=== PATIENT | female | born 1935 | race Caucasian/White ===

== ENCOUNTER 2020-04-21 12:48 | Outpatient (REF) | payer MEDICARE, MEDICAID, SELFPAY | END 2020-04-21 12:49 | disposition home or self-care (01) | LOC: HO.LAB 12:48 | PROVIDERS: Visit Provider Internal Medicine | DX: Z20.828 Contact with and (suspected) exposure to other viral communicable diseases (principal) | CPT/HCPCS: 36415; C9803; U0003 ==

== ENCOUNTER 2020-05-08 09:15 | Outpatient (REF) | payer MEDICARE, MEDICAID, SELFPAY ==
[2020-05-08 11:03] LABS: Alanine Aminotransferase 16 U/L (0-31); Alkaline Phosphatase 115 U/L (39-117); Anion Gap 13 (12-20); Aspartate Amino Transferase 28 U/L (5-31); Bilirubin Total 0.8 mg/dL (0.0-1.0); Blood Urea Nitrogen 25 mg/dL (9-16); Calcium 9.6 mg/dL (8.4-10.2); Carbon Dioxide 25 mmol/L (22-29); Chloride 104 mmol/L (96-108); Cholesterol 151 mg/dL; Estimated Glomerular Filt Rate 43; Glucose Fasting 84 mg/dL (60-99); HDL Cholesterol 68 mg/dL; LDL Cholesterol Calculated 63 mg/dl; Potassium 4.2 mmol/l (3.3-5.1); Sodium 138 mmol/L (135-145); Total Protein 6.6 g/dL (6.5-8.0); Triglycerides 101 mg/dL
== END 2020-05-08 09:16 | disposition home or self-care (01) ==
LOC: HO.LAB 09:15
PROVIDERS: PCP Internal Medicine; Visit Provider Internal Medicine
DX: N18.30 Chronic kidney disease, stage 3 unspecified (principal); E78.00 Pure hypercholesterolemia, unspecified
CPT/HCPCS: 36415; 80053; 80061

== ENCOUNTER 2020-12-01 08:46 | Outpatient (REF) | payer MEDICARE, MEDICAID, SELFPAY ==
--- NOTE | ~2020-12-01 | MM_ITS ---
EXAMINATION: MM SCREENING DIGITAL BREAST TOMOSYNTHESIS, BILATERAL CLINICAL INFORMATION: Screening. Asymptomatic. The lifetime risk of breast cancer based on the Tyrer-Cuzick Model is under 2%. COMPARISON: Mammography: 11/26/2019, outside mammography 05/31/2018, 04/05/2018 ([facility]). TECHNIQUE: Digital breast tomosynthesis is performed in both the craniocaudal and mediolateral oblique views along with computer-aided detection (CAD). Synthesized 2D images are generated from the tomosynthesis. FINDINGS: There are scattered areas of fibroglandular density (ACR BI-RADS breast composition Category b). There are no significant masses, abnormal calcifications, or other abnormalities. There is biopsy clip marker mid upper outer left breast. The axilla and skin contours are unremarkable. Parenchymal pattern is similar to prior studies. No significant changes. MM/MM tomosynthesis screening BI IMPRESSION: No mammographic evidence of malignancy. ASSESSMENT: BI-RADS 1: Negative RECOMMENDATION: Routine annual mammography screening. This patient's information was entered into a reminder system with a target due date for their next mammogram.
[2020-12-01 11:11] LABS: Alanine Aminotransferase 17 U/L (0-31); Albumin Level 4.1 g/dL (3.5-5.0); Alkaline Phosphatase 81 U/L (39-117); Anion Gap 15 (12-20); Aspartate Amino Transferase 26 U/L (5-31); Blood Urea Nitrogen 34 mg/dL (9-16); Calcium 10.1 mg/dL (8.4-10.2); Carbon Dioxide 23 mmol/L (22-29); Chloride 107 mmol/L (96-108); Cholesterol 152 mg/dL; Estimated Glomerular Filt Rate 38; Glucose Fasting 94 mg/dL (60-99); HDL Cholesterol 63 mg/dL; LDL Cholesterol Calculated 73 mg/dl; Potassium 4.4 mmol/L (3.3-5.1); Sodium 141 mmol/L (135-145); Total Protein 6.7 g/dL (6.5-8.0); Triglycerides 81 mg/dL
== END 2020-12-01 08:47 | disposition home or self-care (01) ==
LOC: HO.MAMMO 08:46
PROVIDERS: PCP Internal Medicine; Visit Provider Internal Medicine
DX: Z12.31 Encounter for screening mammogram for malignant neoplasm of breast (principal); E78.5 Hyperlipidemia, unspecified
CPT/HCPCS: 36415; 77063; 77067; 80053; 80061

== ENCOUNTER 2021-10-25 08:36 | Outpatient (REF) | payer OTHER, MEDICAID, SELFPAY ==
[2021-10-25 09:46] LABS: Alanine Aminotransferase 16 U/L (0-31); Alkaline Phosphatase 103 U/L (39-117); Anion Gap 14 (12-20); Aspartate Amino Transferase 24 U/L (5-31); Bilirubin Total 0.8 mg/dL (0.0-1.0); Blood Urea Nitrogen 39 mg/dL (9-16); Calcium 9.6 mg/dL (8.4-10.2); Carbon Dioxide 22 mmol/L (22-29); Chloride 103 mmol/L (96-108); Cholesterol 148 mg/dL; Estimated Glomerular Filt Rate 39; Glucose Fasting 97 mg/dL (60-99); HDL Cholesterol 64 mg/dL; LDL Cholesterol Calculated 72 mg/dl; Potassium 3.9 mmol/L (3.3-5.1); Sodium 135 mmol/L (135-145); Total Protein 6.7 g/dL (6.5-8.0); Triglycerides 62 mg/dL
== END 2021-10-25 08:37 | disposition home or self-care (01) ==
LOC: HO.LAB 08:36
PROVIDERS: PCP Internal Medicine; Visit Provider Internal Medicine
DX: I10 Essential (primary) hypertension (principal); E78.5 Hyperlipidemia, unspecified
CPT/HCPCS: 36415; 80053; 80061

== ENCOUNTER 2021-12-02 09:43 | Outpatient (REF) | payer OTHER, MEDICAID, SELFPAY ==
--- NOTE | ~2021-12-02 | MM_ITS ---
EXAMINATION: MM SCREENING DIGITAL BREAST TOMOSYNTHESIS, BILATERAL CLINICAL INFORMATION: Screening. Asymptomatic. The lifetime risk of breast cancer based on the Tyrer-Cuzick Model is under 2%. COMPARISON: Mammography: 12/01/2020, 11/26/2019, 05/31/2018 TECHNIQUE: Digital breast tomosynthesis is performed in both the craniocaudal and mediolateral oblique views along with computer-aided detection (CAD). Synthesized 2D images are generated from the tomosynthesis. Additional exaggerated right CC view is provided. FINDINGS: There are scattered areas of fibroglandular density (ACR BI-RADS breast composition Category b). There are no significant masses, abnormal calcifications, or other abnormalities. Biopsy clip marker again present left breast upper outer quadrant mid depth. Parenchymal pattern is similar to prior studies. No developing density. No architectural abnormality. MM/MM tomosynthesis screening BI IMPRESSION: No mammographic evidence of malignancy. ASSESSMENT: BI-RADS 1: Negative RECOMMENDATION: Routine annual mammography screening. This patient's information was entered into a reminder system with a target due date for their next mammogram.
--- NOTE | ~2021-12-02 | MM_ITS ---
EXAMINATION: BONE DENSITOMETRY CLINICAL INDICATION: Menopause. COMPARISON: None (current study represents initial baseline exam). TECHNIQUE: Using a [employer] DXA System (software version: 13.1) manufactured by [employer], dual-energy x-ray absorptiometry was performed of the lumbar spine and left hip. The images are of good technical quality. Summary results are attached. FINDINGS: AP SPINE L1-L2 (excluding L3 and L4): The data of L1-L4 has been changed to exclude the L3 and L4 vertebral bodies, because degenerative changes at these levels may cause overestimation of lumbar spine density. BMD 1.224 g/cm2, Z-score 3.0, T-score 0.5, normal. LEFT FEMUR, NECK: BMD 0.785 g/cm2, Z-score 0.9, T-score -1.8, osteopenia. LEFT FEMUR, TOTAL: BMD 0.846 g/cm2, Z-score 1.3, T-score -1.3, osteopenia. IDENTIFIED RISK FACTORS: Menopause, height loss. HISTORY OF FRACTURE: None listed. MEDICATIONS: Vitamin D. MM/XR DEXA axial skeleton IMPRESSION: 1. DIAGNOSIS: Osteopenia based on the lowest T-score value of -1.8 in the femoral neck applying World Health Organization criteria. 2. 10-YEAR FRACTURE RISK PREDICTION, FRAX: Major osteoporotic fracture (clinical spine, forearm, hip or shoulder) 12.6%. Hip fracture 4.0%. 3. Treatment Recommendations: NOF guidelines recommend consideration for treatment in postmenopausal women and men age 50 and older presenting with the following: -A hip or vertebral (clinical or morphometric) fracture. -T-score less than or equal to -2.5 at the femoral neck or spine after appropriate evaluation to exclude secondary causes. -Low bone mass at the hip or spine and a 10-year fracture probability by FRAX of greater than or equal to 3% for hip fracture or greater than or equal to 20% for major osteoporotic fracture based on the [place] adapted WHO algorithm. 4. Other Recommendations: All treatment decisions require clinical judgment and consideration of individual patient factors, including patient preferences, comorbidities, previous drug use, risk factors not captured in the FRAX model (e.g. frailty, falls, vitamin D deficiency, increased bone turnover, interval significant decline in bone density) and possible under or overestimation of fracture risk by FRAX. Additional medical evaluation for secondary cause of low bone mineral density may be appropriate. FUTURE SCAN RECOMMENDATION: People with diagnosed cases of osteoporosis or at high risk for fracture should have regular bone mineral density tests. For patients eligible for Medicare, routine testing is allowed once every 2 years. The testing frequency can be increased to one year for patients who have rapidly progressing disease, those who are receiving or discontinuing medical therapy to restore bone mass, or have additional risk factors.
== END 2021-12-02 09:44 | disposition home or self-care (01) ==
LOC: HO.MAMMO 09:43
PROVIDERS: PCP Internal Medicine; Visit Provider Internal Medicine
DX: Z12.31 Encounter for screening mammogram for malignant neoplasm of breast (principal); Z13.820 Encounter for screening for osteoporosis; Z78.0 Asymptomatic menopausal state
CPT/HCPCS: 77063; 77067; 77080

== ENCOUNTER 2021-12-08 09:54 | Inpatient (IN) | payer OTHER, SELFPAY ==
--- NOTE | ~2021-12-08 | MR_ITS ---
EXAMINATION: MR BRAIN WITHOUT CONTRAST CLINICAL INFORMATION: Cerebellar cerebrovascular accident. Lightheadedness. Dizziness. COMPARISON: CTA head and neck from 12/08/2021. TECHNIQUE: MRI of the brain was obtained using routine sequences without contrast. FINDINGS: No focal restricted diffusion is demonstrated to suggest acute or subacute cerebral ischemia. No evidence of acute or chronic hemorrhagic products on heme-sensitive imaging. Scattered periventricular, deep white matter, and brainstem T2 FLAIR hyperintensities consistent with moderate underlying microangiopathy. Proportional prominence of the ventricles and sulcal spaces without evidence of obstructive hydrocephalus. No abnormal mass effect. No midline shift. Normal appearance of the pituitary gland. Normal positioning of the cerebellar tonsils. Normal arterial and venous vascular flow voids are present. Normal, homogeneous marrow signal. Mild mucosal thickening of the paranasal sinuses. No signal abnormalities within the mastoids. Left-sided lens extraction. MR/MR head/brain wo con IMPRESSION: 1. No acute intracranial abnormalities. 2. Moderate underlying microangiopathy and generalized cerebral volume loss.
--- NOTE | ~2021-12-08 | XR_ITS ---
EXAMINATION: XR CHEST CLINICAL INFORMATION: Lightheadedness. COMPARISON: None TECHNIQUE: Frontal view of the chest was obtained. FINDINGS: Lungs are well expanded and clear. Pulmonary vessels are normal in caliber. No evidence of pulmonary edema or pleural effusion. Cardiac silhouette has normal size and contour. Atherosclerotic calcification of the aorta. Mild dextrocurvature of the degenerated thoracic spine. XR/XR chest 1V IMPRESSION: No acute pulmonary disease.
--- NOTE | ~2021-12-08 | CT_ITS ---
CT ANGIOGRAM NECK WITH CONTRAST CT ANGIOGRAM BRAIN WITH CONTRAST CLINICAL INFORMATION: Balance. Lightheadedness and dizziness. Nausea and vomiting. COMPARISON: None available. TECHNIQUE: Test bolus sequences followed by intravenous administration 79 mL of Omnipaque 350. Helical imaging was performed in the axial plane from the thoracic inlet to the skull vertex. Delayed postcontrast imaging of the head was also performed. The data was processed at the mining engineering technologist workstation for generation of MIP sequences. Angled MIPs and volume rendered reformatted images were also generated at an offline 3D workstation under concurrent supervision. Stenoses are assessed in accordance with NASCET criteria unless otherwise indicated. This CT examination was performed using dose optimization techniques as appropriate, variously including the following: *Automated exposure control *Adjustment of mA and/or kV according to patient size (this includes techniques or standardized protocols for targeted exams where dose is matched to indication/reason for exam; i.e. extremities or head) *Use of iterative reconstruction technique FINDINGS: BRAIN: There is moderate chronic microangiopathy. [There is no intracranial hemorrhage, hydrocephalus, extra-axial surface collection, midline shift, or other herniation pattern. Hathaway to white matter differentiation is diffusely maintained without evidence of an evolved acute territorial infarct. The basilar cisterns are preserved. No significant soft tissue abnormality. No acute osseous abnormality. The paranasal sinuses and the mastoid air cells are well aerated.] CERVICAL SOFT TISSUES AND LUNG APICES: Imaged upper lungs are clear. There is multilevel cervical spondylosis. NECK CTA: Atherosclerotic calcification throughout the aortic arch and of the great vessel origins resulting in mild narrowing of the subclavian artery and left common carotid artery origins. Atherosclerotic calcification results in a severe stenosis of the right vertebral artery origin and the left vertebral artery is dominant. Cervical vertebral arteries remain widely patent. Extensive atherosclerotic calcification results in an 80% stenosis of the proximal right internal carotid artery and a less than 50% stenosis of the proximal left internal carotid artery. Internal carotid arteries are otherwise widely patent. BRAIN CTA: Atherosclerotic calcification throughout the carotid siphons bilaterally without significant stenosis. No focal flow-limiting stenosis nor discrete proximal large artery occlusion. No aneurysm. Timing of the contrast bolus allows assessment of the major dural venous sinuses, which all opacify normally] CT/CT angio head neck IMPRESSION: - No acute intracranial findings. There is moderate chronic microangiopathy. - Extensive atherosclerotic calcification results in an 80% stenosis of the proximal right internal carotid artery and a less than 50% stenosis of the proximal left internal carotid artery. 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
--- NOTE | 2021-12-08 10:17 | ECG_ITS ---
Test Reason : TACHYCARDIA Blood Pressure : / mmHG Vent. Rate : 060 BPM Atrial Rate : 060 BPM P-R Int : 172 ms QRS Dur : 086 ms QT Int : 448 ms P-R-T Axes : 000 -20 124 degrees QTc Int : 448 ms Normal sinus rhythm Low voltage QRS Cannot rule out Anterior infarct , age undetermined ST & T wave abnormality, consider lateral ischemia Abnormal ECG When compared with ECG of 15-AUG-2002 08:08, Minimal criteria for Inferior infarct are no longer Present T wave inversion now evident in Anterolateral leads Referred By: Felicita Holder Electronically Signed By:SHELBY MONTANO
--- NOTE | 2021-12-08 10:24 | ED_ITS ---
HPI - General Adult General Chief complaint: Nausea/Vomiting/Diarrhea Stated complaint: N/V/DIZZINESS X'S 4 HOURS Time Seen by Provider: 12/08/21 10:16 Source: patient Mode of arrival: ambulatory History of Present Illness HPI narrative: 85-year-old female with a past medical history of HLD, HTN, presenting to the ED complaining of lightheadedness and feeling off balance since waking this morning. Reports shakiness, and as soon as she sat up in bed had nausea and 1 episode of emesis. Symptoms worse with position changes and ambulation, denies room spinning dizziness. Denies taking anticoagulation. Denies headache, vision change/loss, CP/SOB, abdominal pain, pedal edema. Admits recently started taking calcium although denies other new medications Onset (ago): hour(s) Related Data Previous Rx's Medication Instructions Recorded lisinopril 20 mg tablet 20 mg PO DAILY 90 days #90 tabs 12/12/20 atorvastatin 20 mg tablet 20 mg PO DAILY 90 days #90 tabs 01/03/21 hydrochlorothiazide 25 mg tablet 25 mg PO QAM 90 days #90 tabs 01/03/21 diltiazem HCl 360 mg 360 mg PO DAILY 90 days #90 caps 11/12/21 capsule,extended release 24 hr calcium carbonate 600 mg-vitamin 1 cap PO BID 90 days #180 caps 12/04/21 D3 10 mcg (400 unit) capsule Allergies Allergy/AdvReac Type Severity Reaction Status Date / Time No Known Allergies Allergy Verified 11/02/21 13:22 Review of Systems Review of Systems: Constitutional: No Fever, No Chills, No Fatigue, No Malaise ENT/Mouth: No Ear Pain, No Nasal Congestion, No Sinus Pain, No Hoarseness, No sore throat, No Rhinorrhea, No Swallowing Difficulty Eyes: No Eye Pain, No Swelling, No Redness,No Vision Changes Cardiovascular: No Chest Pain, No SOB, No Dyspnea on Exertion, No Edema, No Palpitations Respiratory: No Cough, No Sputum, No Dyspnea Gastrointestinal: + Nausea, + Vomiting, No Diarrhea, No Constipation, No Abdominal pain Genitourinary: No Dysuria, No Urinary Frequency, No Hematuria, No Urinary Incontinence/retention Musculoskeletal: No joint pain, No Myalgias, No Joint Swelling Skin: No Skin Lesions, No rash Neuro: + Weakness, No Numbness, No Paresthesias, No Loss of Consciousness, + lightheaded, No Headache Yes all other systems are reviewed and are negative Constitutional: Constitutional: Reports as per HPI Neurologic: Denies Abnormal speech present [facility] Past Medical History Attestation statement: The following information was validated with the patient. Medical History Dyslipidemia Essential hypertension Surgical History History of arthroscopy of left knee Family History Family History Father No problems noted. Mother No problems noted. Social History Social History Housing: Apartment Alcohol intake: never Patient Tobacco Use Status: Never used Tobacco e-Cigarette/Vaping Use: Never Used Second Hand Smoke Exposure: No Advance Directives: Yes Advance Directives Information Provided: Yes Advance Directives on File: No service: No Current occupational status: retired Cognitive needs: No Hearing needs: No Vision needs: No Physical Exam ED Vital Signs: Vital Signs - 24 hr 12/08/21 11:00 12/08/21 11:06 Temperature 97.8 F Pulse Rate 67 67 Respiratory Rate 16 Blood Pressure 139/53 L 139/53 L Pulse Oximetry 100 Oxygen Delivery Method Room Air BMI result Body Mass Index 20.7 Const General: cooperative, healthy appearing and no acute distress Orientation/consciousness: patient oriented x3 Limitations: no limitations [facility] [place] Head: Yes normal to inspection and Yes atraumatic Ears: hearing grossly normal bilaterally General nose exam: Normal external nose present Face and sinus: Yes normal facial exam Eyes General: appearance normal, both eyes and all related structures Pupils: Equal, round and reactive pupils present EOM: EOMs intact bilaterally Neck Neck: Yes normal visual inspection, Yes full ROM and Yes no meningeal signs Resp Effort & Inspection: normal respiratory effort and no respiratory distress Auscultation: clear to auscultation bilaterally, no crackles, no rales and no rhonchi Cardio Rate: regular rate Heart sounds: S1 normal heart sound present and S2 normal heart sound present GI Inspection: Yes normal to inspection Palpation (GI): Soft to palpation, nontender, no guarding and not rigid General: Yes no CVA tenderness Back/Spine/Pelvis Back: no CVA tenderness Skin Rashes: no rashes Wounds: no wounds Neuro Other: No ataxia. Gait slow and steady with some assistance General: patient oriented x3, tone normal, moves all extremities, no meningeal signs, no focal motor deficits and CN's II-XI intact bilaterally Cranial nerves: Yes CN's II-XII intact bilaterally and Yes Equal, round and reactive pupils present Cognition (Neuro): normal cognition Speech: No Abnormal speech present Motor exam (neuro): 5/5 motor strength present throughout, Pronator motor function not present and no tremor noted Romberg Test: Positive Extrem General: Yes normal to inspection Course Course Course Narrative: -1219--no leukocytosis. Platelets 99. BUN chronically elevated. Calcium mildly elevated to 10.5. Initial troponin 33 no available priors > will obtain 3 hour repeat -UA negative. COVID-19 negative -orthostatic vital signs negative XR chest 1V IMPRESSION: No acute pulmonary disease. -1611--repeat troponin elevated 539.9 > will obtain additional repeat EKG. Patient still denies CP/SOB. Will consult Cardiology Dr. Reese Consulted Dr. Reese who recommended holding heparin until MRI can be obtained to rule out ICH/cerebellar CVA. Plan to admit for further management. Medical Decision Making [facility] Narrative Medical decision making narrative: 85-year-old female with a past medical history of HLD, HTN, presenting to the ED complaining of lightheadedness and feeling off balance since waking this morning. Reports shakiness, and as soon as she sat up in bed had nausea and 1 episode of emesis. On exam vital signs stable, NAD, nontoxic appearing, + Romberg's test, ambulating with slow steady gait needing some assistance, no ataxia. Concern for CVA vs BPPV vs metabolic abnormalities vs ACS. Lower suspicion for ICH Patient is not in the window for tPA ad unknown sx start time Plan: EKG, labs, UA, CXR, CTA head and neck, IVF, orthostatics, anticipated admission Medical Records Medical records reviewed: Yes I reviewed the patient's medical records. Lab Data Lab results reviewed: Yes I reviewed the patient's lab results. Result diagrams: 12/08/21 11:27 12/08/21 11:27 Labs: Lab Results 12/08/21 12/08/21 12/08/21 Range/Units 11:20 11:27 11:27 WBC 8.0 (4.8-10.8) X10*3/uL RBC 3.93 L (4.20-5.50) X10*6/uL Hgb 12.2 (12.0-16.0) g/dl Hct 36.8 L (37.0-47.0) % MCV 93.6 (80.0-98.0) fL MCH 31.0 (27.0-33.0) pg MCHC 33.2 (31.0-35.0) g/dl RDW 13.5 (11.0-16.0) % Plt Count 99 L (160-400) X10*3/uL MPV 13.1 H (9.4-12.3) fL Immature Gran % (Auto) 0.5 H (0.0-0.4) % Neut % (Auto) 80.9 H (45-73) % Lymph % (Auto) 11.7 L (20-40) % [place] % (Auto) 5.9 (2-11) % Eos % (Auto) 0.5 (0-4) % Baso % (Auto) 0.5 (0-2) % Lymph # (Auto) 0.9 L (1.2-4.9) X10*3/uL [place] # (Auto) 0.5 (0.1-1.2) X10*3/uL Eos # (Auto) 0.0 (0.0-0.4) X10*3/uL Baso # (Auto) 0.0 (0.0-0.2) X10*3/uL Abs Immat Gran (auto) 0.04 H (0.00-0.03) X10*3/uL Absolute Neuts (auto) 6.5 (2.0-8.3) x10*3/uL Absolute Nucleated RBC 0.000 (0.0-0.012) X10*3/uL Nucleated RBC % (auto) 0.0 (0.0-0.2) /100WBC PT (10.0-13.1) SEC INR (0.9-1.1) APTT (26.0-36.4) SEC Sodium 139 (135-145) mmol/L Potassium 4.9 D (3.3-5.1) mmol/L Chloride 103 (96-108) mmol/L Carbon Dioxide 25 (22-29) mmol/L Anion Gap 16 (12-20) BUN 40 H (9-16) mg/dL Creatinine 1.27 (0.5-1.4) mg/dL Estim Creat Clear Calc 24.1 Estimated GFR 40 Random Glucose 96 (60-115) mg/dL Calcium 10.5 H D (8.4-10.2) mg/dL Magnesium 1.7 (1.6-2.6) mg/dL Total Bilirubin 0.6 (0.0-1.0) mg/dL Direct Bilirubin 0.3 (0.0-0.5) mg/dL AST 24 (5-31) U/L ALT 14 (0-31) U/L Alkaline Phosphatase 85 (39-117) U/L Troponin I High Sens (<3.5-17.0) ng/L Total Protein 6.5 (6.5-8.0) g/dL Albumin 3.8 (3.5-5.0) g/dL Urine Color Urine Appearance Urine pH (5.0-8.0) Ur Specific [place] (1.005-1.025) Urine Protein (Neg-Trace) mg/dL Urine Glucose (UA) (Negative) mg/dL Urine Ketones (Negative) mg/dL Urine Blood (Negative) Urine Nitrite (Negative) Ur Leukocyte Esterase (Negative) COVID-19 (SANDRA) Negative (Negative) COVID-19 Clin Com See Note 12/08/21 12/08/21 12/08/21 Range/Units 11:27 11:27 11:45 WBC (4.8-10.8) X10*3/uL RBC (4.20-5.50) X10*6/uL Hgb (12.0-16.0) g/dl Hct (37.0-47.0) % MCV (80.0-98.0) fL MCH (27.0-33.0) pg MCHC (31.0-35.0) g/dl RDW (11.0-16.0) % Plt Count (160-400) X10*3/uL MPV (9.4-12.3) fL Immature Gran % (Auto) (0.0-0.4) % Neut % (Auto) (45-73) % Lymph % (Auto) (20-40) % [place] % (Auto) (2-11) % Eos % (Auto) (0-4) % Baso % (Auto) (0-2) % Lymph # (Auto) (1.2-4.9) X10*3/uL [place] # (Auto) (0.1-1.2) X10*3/uL Eos # (Auto) (0.0-0.4) X10*3/uL Baso # (Auto) (0.0-0.2) X10*3/uL Abs Immat Gran (auto) (0.00-0.03) X10*3/uL Absolute Neuts (auto) (2.0-8.3) x10*3/uL Absolute Nucleated RBC (0.0-0.012) X10*3/uL Nucleated RBC % (auto) (0.0-0.2) /100WBC PT 11.5 (10.0-13.1) SEC INR 1.0 (0.9-1.1) APTT 27.2 (26.0-36.4) SEC Sodium (135-145) mmol/L Potassium (3.3-5.1) mmol/L Chloride (96-108) mmol/L Carbon Dioxide (22-29) mmol/L Anion Gap (12-20) BUN (9-16) mg/dL Creatinine (0.5-1.4) mg/dL Estim Creat Clear Calc Estimated GFR Random Glucose (60-115) mg/dL Calcium (8.4-10.2) mg/dL Magnesium (1.6-2.6) mg/dL Total Bilirubin (0.0-1.0) mg/dL Direct Bilirubin (0.0-0.5) mg/dL AST (5-31) U/L ALT (0-31) U/L Alkaline Phosphatase (39-117) U/L Troponin I High Sens 33.0 H (<3.5-17.0) ng/L Total Protein (6.5-8.0) g/dL Albumin (3.5-5.0) g/dL Urine Color Yellow Urine Appearance Clear Urine pH 7.5 (5.0-8.0) Ur Specific [place] 1.010 (1.005-1.025) Urine Protein Negative (Neg-Trace) mg/dL Urine Glucose (UA) Negative (Negative) mg/dL Urine Ketones Negative (Negative) mg/dL Urine Blood Negative (Negative) Urine Nitrite Negative (Negative) Ur Leukocyte Esterase Negative (Negative) COVID-19 (SANDRA) (Negative) COVID-19 Clin Com 12/08/21 Range/Units 15:11 WBC (4.8-10.8) X10*3/uL RBC (4.20-5.50) X10*6/uL Hgb (12.0-16.0) g/dl Hct (37.0-47.0) % MCV (80.0-98.0) fL MCH (27.0-33.0) pg MCHC (31.0-35.0) g/dl RDW (11.0-16.0) % Plt Count (160-400) X10*3/uL MPV (9.4-12.3) fL Immature Gran % (Auto) (0.0-0.4) % Neut % (Auto) (45-73) % Lymph % (Auto) (20-40) % [place] % (Auto) (2-11) % Eos % (Auto) (0-4) % Baso % (Auto) (0-2) % Lymph # (Auto) (1.2-4.9) X10*3/uL [place] # (Auto) (0.1-1.2) X10*3/uL Eos # (Auto) (0.0-0.4) X10*3/uL Baso # (Auto) (0.0-0.2) X10*3/uL Abs Immat Gran (auto) (0.00-0.03) X10*3/uL Absolute Neuts (auto) (2.0-8.3) x10*3/uL Absolute Nucleated RBC (0.0-0.012) X10*3/uL Nucleated RBC % (auto) (0.0-0.2) /100WBC PT (10.0-13.1) SEC INR (0.9-1.1) APTT (26.0-36.4) SEC Sodium (135-145) mmol/L Potassium (3.3-5.1) mmol/L Chloride (96-108) mmol/L Carbon Dioxide (22-29) mmol/L Anion Gap (12-20) BUN (9-16) mg/dL Creatinine (0.5-1.4) mg/dL Estim Creat Clear Calc Estimated GFR Random Glucose (60-115) mg/dL Calcium (8.4-10.2) mg/dL Magnesium (1.6-2.6) mg/dL Total Bilirubin (0.0-1.0) mg/dL Direct Bilirubin (0.0-0.5) mg/dL AST (5-31) U/L ALT (0-31) U/L Alkaline Phosphatase (39-117) U/L Troponin I High Sens 539.9 H* D (<3.5-17.0) ng/L Total Protein (6.5-8.0) g/dL Albumin (3.5-5.0) g/dL Urine Color Urine Appearance Urine pH (5.0-8.0) Ur Specific [place] (1.005-1.025) Urine Protein (Neg-Trace) mg/dL Urine Glucose (UA) (Negative) mg/dL Urine Ketones (Negative) mg/dL Urine Blood (Negative) Urine Nitrite (Negative) Ur Leukocyte Esterase (Negative) COVID-19 (SANDRA) (Negative) COVID-19 Clin Com ECG Data Attestation: I personally reviewed and interpreted this ECG as follows: Prior ECG tracings: available for review Interpretation: EKG normal sinus rhythm at a rate of 63. Low-voltage QRS. T-wave inversions in aVL, V2. ST depression in V2 through V6 Critical Care Time Critical Care Time Critical Care Time: Yes Total Critical Care Time: 40 Attestation: I have personally provided critical care time exclusive of time spent on separately billable procedures. Time includes review of lab data, radiology results, discussion with consultants, and monitoring for potential decompensation. Intervention performed as documented. Discharge Plan Discharge Clinical Impression: Non-ST elevation OR (NSTEMI) Patient Disposition: Admitted As Inpatient Prescriptions: No Action lisinopril 20 mg tablet 20 mg PO DAILY 90 Days Qty: 90 3RF atorvastatin 20 mg tablet 20 mg PO DAILY 90 Days Qty: 90 3RF hydrochlorothiazide 25 mg tablet 25 mg PO QAM 90 Days Qty: 90 3RF diltiazem HCl 360 mg capsule,extended release 24hr 360 mg PO DAILY 90 Days Qty: 90 1RF calcium carbonate-vitamin D3 600 mg-10 mcg (400 unit) capsule 1 cap PO BID 90 Days Qty: 180 2RF
[2021-12-08 11:00] VITALS: BP 124/68; BP 139/53; PULSE 67; PULSE 89; RESP 16; TEMP 36.6; O2SAT 100; O2SAT 99; BMI 20.7
[2021-12-08 11:06] VITALS: BP 139/53; PULSE 67
[2021-12-08] MEDS: ondansetron HCL 4 MG/2 ML VIAL IVPUSH (11:14)
[2021-12-08 11:30] LABS: MANUAL DIFF FLAG NO
[2021-12-08] MEDS: Meclizine HCl 25 MG TABLET PO (11:31)
[2021-12-08] MEDS: 0.9 % Sodium Chloride 1,000 ML 999 ML IV (11:31)
[2021-12-08 11:42] LABS: Basophils Percent Auto 0.5 % (0-2); Eosinophils Percent Auto 0.5 % (0-4); Hematocrit 36.8 % (37.0-47.0); Hemoglobin 12.2 g/dl (12.0-16.0); Imm Gran Abs Auto 0.04 X10*3/uL (0.00-0.03); Imm Gran Pct Auto 0.5 % (0.0-0.4); Lymphocytes Absolute Auto 0.9 X10*3/uL (1.2-4.9); Lymphocytes Percent Auto 11.7 % (20-40); Mean Corpuscular HGB Conc 33.2 g/dl (31.0-35.0); Mean Corpuscular Volume 93.6 fL (80.0-98.0); Monocytes Absolute Auto 0.5 X10*3/uL (0.1-1.2); Monocytes Percent Auto 5.9 % (2-11); Neutrophils Absolute Auto 6.5 x10*3/uL (2.0-8.3); Neutrophils Percent Auto 80.9 % (45-73); Red Blood Count 3.93 X10*6/uL (4.20-5.50); Red Cell Distribution Width 13.5 % (11.0-16.0)
[2021-12-08 11:47] LABS: Prothrombin Time 11.5 SEC (10.0-13.1)
[2021-12-08 11:49] LABS: COVID-19 Test Negative (Negative); IDNOW Serial# 16C4AD1C
[2021-12-08 11:50] LABS: Partial Thromboplastin Time 27.2 SEC (26.0-36.4)
[2021-12-08 11:55] LABS: Appearance Urine Clear; Color Urine Yellow; Glucose Urine UA Negative (Negative); Leukocyte Esterase Urine Negative (Negative); Nitrite Urine Negative (Negative); PH 7.5 (5.0-8.0); Urine Blood Negative (Negative); Urine Ketones Negative (Negative); Urine Protein Negative (Neg-Trace)
[2021-12-08 11:56] LABS: Alanine Aminotransferase 14 U/L (0-31); Albumin Level 3.8 g/dL (3.5-5.0); Alkaline Phosphatase 85 U/L (39-117); Anion Gap 16 (12-20); Aspartate Amino Transferase 24 U/L (5-31); Bilirubin Direct 0.3 mg/dL (0.0-0.5); Bilirubin Total 0.6 mg/dL (0.0-1.0); Blood Urea Nitrogen 40 mg/dL (9-16); Calcium 10.5 mg/dL (8.4-10.2); Carbon Dioxide 25 mmol/L (22-29); Chloride 103 mmol/L (96-108); Creatinine Clr Calc Pharmacy 24.1; Estimated Glomerular Filt Rate 40; Glucose Random 96 mg/dL (60-115); Magnesium 1.7 mg/dL (1.6-2.6); Potassium 4.9 mmol/L (3.3-5.1); Sodium 139 mmol/L (135-145); Total Protein 6.5 g/dL (6.5-8.0)
[2021-12-08 11:59] LABS: Mean Platelet Volume 13.1 fL (9.4-12.3); Platelet Count 99 X10*3/uL (160-400)
[2021-12-08] MEDS: iohexoL 350 MG/ML 100 ML INFUS..BTL IV (12:45)
--- NOTE | 2021-12-08 14:00 | ECG_ITS ---
Test Reason : FALL Blood Pressure : / mmHG Vent. Rate : 066 BPM Atrial Rate : 000 BPM P-R Int : 000 ms QRS Dur : 082 ms QT Int : 444 ms P-R-T Axes : 000 -02 143 degrees QTc Int : 465 ms Poor data quality, interpretation may be adversely affected Normal sinus rhythm Low voltage QRS ST & T wave abnormality, consider anterolateral ischemia Abnormal ECG When compared with ECG of 08-DEC-2021 14:00, T wave inversion more evident in Anterior leads Referred By: Felicita Holder Electronically Signed By:SHELBY MONTANO
[2021-12-08] MEDS: diphenhydrAMINE HCL 25 MG TABLET 12.5 MG PO (15:18)
[2021-12-08 16:02] LABS: Troponin-I High Sensitivity 539.9 ng/L (<3.5-17.0)
--- NOTE | 2021-12-08 16:12 | ECG_ITS ---
Test Reason : cp Blood Pressure : / mmHG Vent. Rate : 063 BPM Atrial Rate : 064 BPM P-R Int : 000 ms QRS Dur : 092 ms QT Int : 446 ms P-R-T Axes : 000 -07 089 degrees QTc Int : 456 ms Poor data quality, interpretation may be adversely affected Normal sinus rhythm Low voltage QRS ST & T wave abnormality, consider lateral ischemia Abnormal ECG When compared with ECG of 15-AUG-2002 08:08, Minimal criteria for Inferior infarct are no longer Present T wave inversion now evident in Lateral leads ST now depressed in Lateral leads Referred By: Felicita Holder Electronically Signed By:SHELBY MONTANO
--- NOTE | 2021-12-08 16:13 | PHA.MEDREC ---
Pharmacy Consult ? Medication Reconciliation Pharmacy has completed the medication reconciliation. Confirmed with patient down in ED
--- NOTE | 2021-12-08 17:18 | PM.IMHP ---
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 She sat up in bed and vomited twice. No vertigo. No headache, visual blurring, dyspnea, palpitations, chest pain, chest pressure, or abdominal pain. Currently she is still dizzy, especially with sitting up. In the ED, orthostatic VS were normal. Initial hs-Tn-I was 33; 3-hour repeat was 540. EKG showed NSR with anterolateral TWIs not present on old EKG from 2002. CXR was normal. 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 She was given aspirin and meclizine. MRI of the brain showed moderate underlying microangiopathy and generalized cerebral volume loss, but no acute intracranial abnormalities. Review of Systems Review of Systems: Yes all other systems are reviewed and are negative [facility] Medical History Dyslipidemia Essential hypertension Family History Father No problems noted. Mother No problems noted. Surgical History History of arthroscopy of left knee Social History Housing: Apartment Alcohol intake: never Patient Tobacco Use Status: Never used Tobacco e-Cigarette/Vaping Use: Never Used Second Hand Smoke Exposure: No Use of substances other than those prescribed or required for medical reasons: No Advance Directives: Yes Advance Directives Information Provided: Yes Advance Directives on File: No service: No Current occupational status: retired Cognitive needs: No Hearing needs: No Vision needs: No Meds Allergies Allergy/AdvReac Type Severity Reaction Status Date / Time No Known Allergies Allergy Verified 11/02/21 13:22 Active Medications: Current Medications Atorvastatin Calcium (Atorvastatin Calcium 80 Mg Tablet) 80 mg PO BEDTIME OSVALDO Calcium Carbonate/Cholecalciferol (Calcium + Vitamin D 250 Mg Tablet) 500 mg PO BID OSVALDO Lisinopril (Lisinopril 20 Mg Tablet) 20 mg PO DAILY OSVALDO; Protocol Pharmacy Consult (Consult Rx Perform Med Rec) 1 each MISCELLANE ONCE PRN PRN Reason: Consult order Physical Exam Vital Signs and Narrative: Vital Signs: Last Vital Signs Temp 97.8 F 12/08/21 11:00 Pulse 67 12/08/21 11:06 Resp 16 12/08/21 11:00 BP 139/53 L 12/08/21 11:06 Pulse Ox 100 12/08/21 11:00 O2 Del Method 12/08/21 11:00 BMI result Body Mass Index 20.7 Gen: in no acute distress HEENT: sclera anicteric, moist mucus membranes Neck: supple Lungs: clear to auscultation bilaterally Heart: regular rate and rhythm, no murmurs Abd: soft, non-tender, non-distended Ext: no edema Skin: warm/well-perfused Neuro: alert and oriented x3, positive Romberg Psych: appropriate affect Results Labs CBC and Chem 7: 12/09/21 06:21 12/09/21 06:21 Labs: Laboratory Results - last 24 hr 12/08/21 12/08/21 12/08/21 11:20 11:27 11:27 MCV 93.6 MCH 31.0 MCHC 33.2 RDW 13.5 Plt Count 99 L MPV 13.1 H Immature Gran % (Auto) 0.5 H Neut % (Auto) 80.9 H Lymph % (Auto) 11.7 L Morehouse % (Auto) 5.9 Eos % (Auto) 0.5 Baso % (Auto) 0.5 Lymph # (Auto) 0.9 L Morehouse # (Auto) 0.5 Eos # (Auto) 0.0 Baso # (Auto) 0.0 Abs Immat Gran (auto) 0.04 H Absolute Neuts (auto) 6.5 Absolute Nucleated RBC 0.000 Nucleated RBC % (auto) 0.0 PT INR APTT Anion Gap 16 Estim Creat Clear Calc 24.1 Estimated GFR 40 Random Glucose 96 Calcium 10.5 H D Magnesium 1.7 Total Bilirubin 0.6 Direct Bilirubin 0.3 AST 24 ALT 14 Alkaline Phosphatase 85 Total Protein 6.5 Albumin 3.8 Urine Color Urine Appearance Urine pH Ur Specific Bradford Urine Protein Urine Glucose (UA) Urine Ketones Urine Blood Urine Nitrite Ur Leukocyte Esterase COVID-19 (SANDRA) Negative COVID-19 Clin Com See Note 12/08/21 12/08/21 11:27 11:45 MCV MCH MCHC RDW Plt Count MPV Immature Gran % (Auto) Neut % (Auto) Lymph % (Auto) Morehouse % (Auto) Eos % (Auto) Baso % (Auto) Lymph # (Auto) Morehouse # (Auto) Eos # (Auto) Baso # (Auto) Abs Immat Gran (auto) Absolute Neuts (auto) Absolute Nucleated RBC Nucleated RBC % (auto) PT 11.5 INR 1.0 APTT 27.2 Anion Gap Estim Creat Clear Calc Estimated GFR Random Glucose Calcium Magnesium Total Bilirubin Direct Bilirubin AST ALT Alkaline Phosphatase Total Protein Albumin Urine Color Yellow Urine Appearance Clear Urine pH 7.5 Ur Specific Bradford 1.010 Urine Protein Negative Urine Glucose (UA) Negative Urine Ketones Negative Urine Blood Negative Urine Nitrite Negative Ur Leukocyte Esterase Negative COVID-19 (SANDRA) COVID-19 Clin Com Imaging Radiologist's Impressions: Impressions Chest X-Ray 12/08/21 11:02 IMPRESSION: No acute pulmonary disease. Head/Neck CTA 12/08/21 12:30 IMPRESSION: - No acute intracranial findings. There is moderate chronic microangiopathy. - Extensive atherosclerotic calcification results in an 80% stenosis of the proximal right internal carotid artery and a less than 50% stenosis of the proximal left internal carotid artery. - Atherosclerotic calcification results in a severe stenosis of the right vertebral artery origin Assessment and Plan (1) Non-ST elevation HI (NSTEMI): Status: Acute (2) Dizziness: Status: Acute Plan 85yo F with HTN and HLD presenting with acute-onset dizziness and found to have NSTEMI # NSTEMI - admit to IMC, heparinize, Cardiology consult, TTE, high-intensity statin, ASA # dizziness - unclear cause- no evidence for cerebellar stroke. monitor on telemetry # thrombocytopenia - very mild @ 99, but monitor carefully while on heparin gtt # HTN - continue lisinopril + HCTZ + diltiazem # VTE prophylaxis: IV heparin # code status: DNR/DNI I anticipate that the patient will stay at least 2 midnights in hospital due to the above reasons. It is neither reasonable nor safe to care for them in a less acute setting. Quality Stroke Does the patient have a stroke diagnosis?: No VTE Prior VTE?: No VTE Risk Level:: Medical - moderate - high VTE Device Contraindication: N/A - Device Ordered VTE Drug Contraindication: N/A - Med Ordered
[2021-12-08 19:30] VITALS: BP 151/54; PULSE 74; RESP 19; TEMP 37; O2SAT 99
[2021-12-08] MEDS: Calcium + Vitamin D 250 MG TABLET 500 MG PO (19:32)
[2021-12-08] MEDS: Aspirin Enteric Coated 325 MG TABLET.DR PO (19:32)
[2021-12-08] MEDS: Atorvastatin Calcium 80 MG TABLET PO (19:32)
[2021-12-08 20:16] VITALS: BP 117/48; PULSE 78; RESP 15; O2SAT 98
--- NOTE | 2021-12-08 22:00 | PC.NURSE ---
pt a&ox3, vss, denies any pain, RR even an unlabored. no new orders at this time.
[2021-12-08 23:52] VITALS: BP 115/49; PULSE 70; RESP 16; TEMP 36.9; O2SAT 97
--- NOTE | 2021-12-09 00:03 | PC.NURSE ---
PATIENT WAS ASSISTED UNTO BED ANGUIANO ,VOIDED LARGE AMOUNT ,CARE GIVEN .
[2021-12-09] MEDS: traZODone HCL 50 MG TABLET PO (00:30)
[2021-12-09] MEDS: 0.9 % Sodium Chloride Flush 3 ML SYRINGE IVFLUSH (00:30)
[2021-12-09 04:00] VITALS: BP 107/40; PULSE 61; RESP 16; TEMP 36.6; O2SAT 98
--- NOTE | 2021-12-09 07:00 | CA_ITS ---
Transthoracic Echocardiogram Patient (Last, First, Middle): Magali Lagos, Gender: Female Date of : 1935 Age: 85 Procedure Date: 12/09/2021 Procedure Type: Transthoracic Echocardiogram Location: ER Height: 152.4 cm Weight: 48.08 kg BSA: 1.43 m2 Heart Rate: 67 bpm BP: 116 / 51 mmHg Yard Driver: TO Referring MD: Clifford Nix MD Symptoms: nstemi Study Quality: Adequate ECG Rhythm: Sinus Conclusions: - The left ventricular systolic function is moderately decreased. The calculated ejection fraction is 35% by biplane method. - The entire apex, the mid anterior, and mid anteroseptal segments are akinetic. - No obvious valvular pathology seen on this study. Findings Left Ventricle Normal left ventricular cavity size. There is normal left ventricular wall thickness. The left ventricular systolic function is moderately decreased. The calculated ejection fraction is 35% by biplane method. There is evidence of regional wall motion abnormalities. E/E prime ratio is between 8 and 15 consistent with indeterminate filling pressures. Evidence suggests grade II (moderate) diastolic dysfunction. Wall Motion Rest Echo Findings The entire apex, the mid anterior, and mid anteroseptal segments are akinetic. Right Ventricle Normal right ventricular cavity size and systolic function. Atria The left atrium is moderately dilated. The right atrium is normal in size. Aortic Valve There is a normal trileaflet aortic valve. There is no aortic valve stenosis. There is mild aortic valve regurgitation. Mitral Valve The mitral valve appears normal. There is trace mitral valve regurgitation. There is no mitral valve stenosis. Pulmonic Valve The pulmonic valve is likely normal. Tricuspid Valve Normal tricuspid valve structure. There is mild tricuspid valve regurgitation. The pulmonary artery systolic pressure is normal. Great Vessels The asc aorta is normal in size. Small plaque is seen in the sino tubular ridge. Venous The inferior vena cava is normal in size. Pericardium/Pleural There is no evidence of pericardial effusion. Prior Study Comparison No prior study available for comparison. Recommendations, Care & Conclusions No obvious valvular pathology seen on this study. Measurements M-Mode Liner Measurements Normals - Women/Men RVIDd: 3.24 0.9-2.6 cm IVSd: 0.60 0.6-0.9/0.6-1.0 cm LVIDd: 5.48 3.9-5.3/4.2-5.9 cm LVIDs: 4.00 2.0-3.8 cm LVPWd: 0.70 0.6-0.9/0.6-1.0 cm LA Diam: 3.70 2.7-3.8/3.0-4.0 cm 2D Linear Measurements IVSd: 0.64 0.6-0.9/0.6-1.0 cm LVIDd: 5.48 3.9-5.3/4.2-5.9 cm LVIDd Index: 3.83 2.4-3.2/2.2-3.1 cm/m2 LVIDs: 4.04 2.0-3.6 cm LVPWd: 0.71 0.7-1.1 cm LA Diam: 3.70 2.7-3.8/3.0-4.0 cm LAIDs Index: 2.59 1.5-2.3 cm/m2 LV Mass: 160.35 67-162/88-224 g LV Mass Index: 112.13 43-95/49-115 g/m2 LVOT Diam: 2.00 3.0+(-)1.3 cm RA Area,d: 13.10 8.3-19.5 cm2 2D Systolic Function EF 4C: 31.40 >55% EF 2C: 37.30 >55% EF BiP: 35.30 >55% Mitral Valve MV Pk E: 0.68 MV PK A: 0.49 MV Decel Time: 210.00 E/A: 1.40 E'Lateral: 9.46 E'Medial: 5.87 E/E' Med: 11.70 E/E' Lat: 7.30 PHT: 61.00 MVA PHT: 3.61 Decel Ocean: 3.27 Aortic Valve AoV Pk Quentin: 0.99 AoV Mn Quentin: 0.65 AoV VTI: 20.20 AoV Pk Grad: 4.00 Aov Mn Grad: 2.00 GLORIA Cont.VTI: 2.56 AI Pk Quentin: 2.96 AI Ocean: 1.62 LVOT LVOT Pk Quentin: 0.85 LVOT Mn Quentin: 0.48 LVOT VTI: 16.50 LVOT Pk Grad: 3.00 LVOT Mn Grad: 1.00 LVOT Diam: 2.00 LVOT Area: 3.14 Diastolic Function MV Pk E: 0.68 MV Pk A: 0.49 E/A: 1.40 E'Medial: 5.87 E/E' Med: 11.70 E' Laterial: 9.46 E/E' Lat: 7.30 Right Ventricle TAPSE (mm): 25.60 TVS' Quentin: 14.70 Tricuspid Valve TR Pk Quentin: 2.66 TR Pk Grad: 28.00 RA Press: 3.00 RVSP: 31.00 Great Vessels Aorta Sinus of Valsalva: 3.24 2.0-3.[address] Ridge: 2.36 1.7-3.4 cm Ao Asc: 3.10 2.1-3.4 cm Updated in Other Vendor System with Status of Final Adonis Reese MD electronically signed on 12/09/2021 12:01:30 PM with status of Final
[2021-12-09 07:09] LABS: Hematocrit 38.2 % (37.0-47.0); Hemoglobin 12.9 g/dl (12.0-16.0); Mean Corpuscular HGB Conc 33.8 g/dl (31.0-35.0); Mean Corpuscular Hemoglobin 31.5 pg (27.0-33.0); Mean Corpuscular Volume 93.4 fL (80.0-98.0); Mean Platelet Volume 13.8 fL (9.4-12.3); Platelet Count 104 X10*3/uL (160-400); Red Blood Count 4.09 X10*6/uL (4.20-5.50); Red Cell Distribution Width 13.7 % (11.0-16.0); White Blood Count 8.7 X10*3/uL (4.8-10.8)
[2021-12-09 07:10] LABS: Prothrombin Time 11.9 SEC (10.0-13.1)
[2021-12-09 07:13] LABS: PTT Heparin Drip 28.4 SEC (53-77.9)
[2021-12-09 07:21] LABS: Estimated Average Glucose 100 mg/dL; Hemoglobin A1c % 5.1 %
[2021-12-09 07:24] LABS: Anion Gap 14 (12-20); Blood Urea Nitrogen 30 mg/dL (9-16); Carbon Dioxide 24 mmol/L (22-29); Chloride 107 mmol/L (96-108); Cholesterol 131 mg/dL; Creatinine Clr Calc Pharmacy 26.1; Estimated Glomerular Filt Rate 44; Glucose Random 84 mg/dL (60-115); HDL Cholesterol 58 mg/dL; LDL Cholesterol Calculated 60 mg/dl; Sodium 141 mmol/L (135-145); Triglycerides 68 mg/dL
[2021-12-09 07:33] LABS: Calcium 9.5 mg/dL (8.4-10.2)
[2021-12-09 07:34] VITALS: BP 124/47; PULSE 69; RESP 12; O2SAT 99
[2021-12-09] MEDS: Heparin Sodium,Porcine 5,000 UNIT/ML VIAL 3800 UNIT IVPUSH (07:46)
[2021-12-09] MEDS: Heparin Sodium,Porcine/1/2NS 25,000 UNIT/250 ML IV.SOLN 6.73 UNIT IVCONT (07:55)
[2021-12-09 08:12] LABS: Reflex LDLD? No
--- NOTE | 2021-12-09 09:49 | P.CONCA_ITS ---
History of Present Illness History of Present Illness Date of Service: 12/09/21 Chief complaint: NSTEMI Narrative: This is a cardiology consultation regarding non ST-elevation myocardial in [facility]. Patient states that she is generally healthy and does not have any major cardiovascular or in fact any other major medical problems. She is reasonably healthy according to her. She presented mainly for lack of balance, dizziness and sensation of disequilibrium. She has had up in bed and apparently vomited. When she came to the ER, troponins were checked and they were markedly elevated suggestive of myocardial infarction. However, there was no clear chest pain documented. When I questioned her in more detail, she states that she might have had some pressure in the chest but again she does not think that was the main issue and she came rather for the dizzy type sensation that she has been having. Today, she seems fairly comfortable and states that she does not have any chest pain or in fact any other symptoms. She is being treated with IV heparin for non ST elevation myocardial infarction she had an MRI for cerebellar stroke and that was negative. She had CT of the neck and that shows significant carotid stenosis on the right side along with vertebral stenosis as well. Review of Systems Review of Systems: Yes all other systems are reviewed and are negative Constitutional: Constitutional: Reports as per HPI Eyes: Eyes: Reports as per HPI ENT: Reports as per HPI Cardiovascular: Cardiovascular: Reports as per HPI, Denies acrocyanosis, Denies cool extremities, Reports chest pain, Denies leg edema, Denies lightheadedness, Denies palpitations and Denies dyspnea Respiratory: Respiratory: Reports as per HPI, Reports no additional respirat ory complaints and Denies dyspnea Gastrointestinal: Gastrointestinal: Reports as per HPI and Reports no additional gastrointestinal complaints Genitourinary: Genitourinary: Reports as per HPI Musculoskeletal: Musculoskeletal: Reports no additional musculoskeletal complaints and Reports as per HPI Integumentary/Breasts: Skin/Breast: Reports system reviewed and no additional complaints, except as docu Neurologic: Reports system reviewed and no additional complaints, except as documented and Reports as per HPI Psychiatric: Psychiatric: Reports no additional psychiatric complaints and Reports as per HPI Endocrine: Endocrine: Reports no additional endocrine complaints, Reports as per HPI and Denies palpitations Hematologic/Lymphatic: Hematologic/Lymphatic: Reports no additional hematolo gic/lymphatic complaints and Reports as per HPI Allergic/Immunologic: Allergic/Immunologic: Reports no additional allergic/immunologic complaints and Reports as per HPI PMFSH Past Medical History Medical History Dyslipidemia Essential hypertension Family History Family History Father No problems noted. Mother No problems noted. Surgical History Surgical History History of arthroscopy of left knee Social History Social History Housing: Apartment Alcohol intake: never Patient Tobacco Use Status: Never used Tobacco e-Cigarette/Vaping Use: Never Used Second Hand Smoke Exposure: No Use of substances other than those prescribed or required for medical reasons: No Advance Directives: Yes Advance Directives Information Provided: Yes Advance Directives on File: No service: No Current occupational status: retired Cognitive needs: No Hearing needs: No Vision needs: No Meds Allergies Allergy/AdvReac Type Severity Reaction Status Date / Time No Known Allergies Allergy Verified 11/02/21 13:22 Active Medications: Current Medications Acetaminophen (Acetaminophen 325 Mg Tablet) 650 mg PO Q6H PRN PRN Reason: Pain, Mild (Pain Scale 1-3) Al Hydroxide/Mg Hydroxide (Magnesium Hydrox/Alum Hydrox 30 Ml Oral.Susp) 30 ml PO Q4H PRN PRN Reason: Heartburn/Nausea Aspirin (Aspirin Enteric Coated 81 Mg Tablet.) 81 mg PO DAILY [facility] Atorvastatin Calcium (Atorvastatin Calcium 80 Mg Tablet) 80 mg PO BEDTIME [facility] Last Admin: 12/08/21 19:32 Dose: 80 mg Calcium Carbonate/Cholecalciferol (Calcium + Vitamin D 250 Mg Tablet) 500 mg PO BID [facility] Last Admin: 12/08/21 19:32 Dose: 500 mg Diltiazem HCl (Diltiazem Hcl Cd 180 Mg Cap.Er.24h) 360 mg PO DAILY [facility]; Protocol Heparin Sodium (Porcine) (Heparin Sodium,Porcine 5,000 Unit/Ml Vial) 1,900 unit 40 unit/kg (1900 unit) IVPUSH PROTOCOL BOLUS PRN; Protocol PRN Reason: 40 unit/kg - Heparin Protocol Heparin Sodium (Porcine) (Heparin Sodium,Porcine 5,000 Unit/Ml Vial) 3,800 unit 80 unit/kg (3800 unit) IVPUSH PROTOCOL BOLUS PRN; Protocol PRN Reason: 80 unit/kg - Heparin Protocol Hydrochlorothiazide (Hydrochlorothiazide 25 Mg Tablet) 25 mg PO DAILY [facility]; Protocol Heparin Sodium/Sodium Chloride (Heparin Sodium,Porcine/1/2ns) 25,000 unit in 250 mls @ 0 mls/hr IVCONT .Q0M [facility]; Protocol Last Admin: 12/09/21 07:55 Dose: 14 units/kg/hr, 6.73 mls/hr Lisinopril (Lisinopril 20 Mg Tablet) 20 mg PO DAILY [facility]; Protocol Morphine Sulfate (Morphine Sulfate 4 Mg/Ml Cartridge) 2 mg IVPUSH Q4H PRN; Protocol PRN Reason: Pain, Severe (Pain Scale 7-10) Nitroglycerin (Nitroglycerin 0.4 Mg Tab.Subl) 0.4 mg SUBLINGUAL Q5MX3 PRN PRN Reason: Chest Pain Ondansetron HCl (Ondansetron Hcl 4 Mg/2 Ml Vial) 4 mg IVPUSH Q8H PRN PRN Reason: Nausea and Vomiting Pharmacy Consult (Consult Rx Perform Med Rec) 1 each MISCELLANE ONCE PRN PRN Reason: Consult order Sodium Chloride (0.9 % Sodium Chloride Flush 3 Ml Syringe) 3 ml IVFLUSH QSHIFT [facility] Last Admin: 12/09/21 09:18 Dose: Not Given Physical Exam Vital Signs: Vital Signs: Last Vital Signs Temp 97.8 F 12/09/21 04:00 Pulse 69 12/09/21 07:34 Resp 12 12/09/21 07:34 BP 124/47 L 12/09/21 07:34 Pulse Ox 99 12/09/21 07:34 O2 Del Method 12/09/21 07:34 BMI result Body Mass Index 20.7 Const: General: comfortable and no acute distress Orientation/consciousness: patient oriented x3 HEENT: Other: Unremarkable Head: Yes normal to inspection Neck: Neck: Yes normal visual inspection Chest: Chest palpation & inspection: normal inspection of the chest Resp: Auscultation: clear to auscultation bilaterally Cardio: Palpation: normal PMI Heart sounds: S1 normal heart sound present, S2 normal heart sound present, no gallops, no murmurs and no rubs GI: Palpation (GI): Soft to palpation Back/Spine/Pelvis: Other: unremarkable Skin: General skin exam: no rashes or lesions noted Neuro: General: patient oriented x3 Extrem: General: Yes normal to inspection Psych: Mental Status: mental status grossly normal Objective Labs and Meds Result diagrams: 12/09/21 06:21 12/09/21 06:21 Lab results: Laboratory Results - last 24 hr 12/08/21 12/08/21 12/08/21 11:20 11:27 11:27 WBC 8.0 RBC 3.93 L Hgb 12.2 Hct 36.8 L MCV 93.6 MCH 31.0 MCHC 33.2 RDW 13.5 Plt Count 99 L MPV 13.1 H Immature Gran % (Auto) 0.5 H Neut % (Auto) 80.9 H Lymph % (Auto) 11.7 L [place] % (Auto) 5.9 Eos % (Auto) 0.5 Baso % (Auto) 0.5 Lymph # (Auto) 0.9 L [place] # (Auto) 0.5 Eos # (Auto) 0.0 Baso # (Auto) 0.0 Abs Immat Gran (auto) 0.04 H Absolute Neuts (auto) 6.5 Absolute Nucleated RBC 0.000 Nucleated RBC % (auto) 0.0 PT INR APTT aPTT Heparin Protocol Sodium 139 Potassium 4.9 D Chloride 103 Carbon Dioxide 25 Anion Gap 16 BUN 40 H Creatinine 1.27 Estim Creat Clear Calc 24.1 Estimated GFR 40 Random Glucose 96 Estimat Average Glucose Hemoglobin A1c % Calcium 10.5 H D Magnesium 1.7 Total Bilirubin 0.6 Direct Bilirubin 0.3 AST 24 ALT 14 Alkaline Phosphatase 85 Troponin I High Sens Total Protein 6.5 Albumin 3.8 Triglycerides Cholesterol LDL Cholesterol, Calc HDL Cholesterol Urine Color Urine Appearance Urine pH Ur Specific [place] Urine Protein Urine Glucose (UA) Urine Ketones Urine Blood Urine Nitrite Ur Leukocyte Esterase COVID-19 (SANDRA) Negative COVID-19 Clin Com See Note 12/08/21 12/08/21 12/08/21 11:27 11:27 11:45 WBC RBC Hgb Hct MCV MCH MCHC RDW Plt Count MPV Immature Gran % (Auto) Neut % (Auto) Lymph % (Auto) [place] % (Auto) Eos % (Auto) Baso % (Auto) Lymph # (Auto) [place] # (Auto) Eos # (Auto) Baso # (Auto) Abs Immat Gran (auto) Absolute Neuts (auto) Absolute Nucleated RBC Nucleated RBC % (auto) PT 11.5 INR 1.0 APTT 27.2 aPTT Heparin Protocol Sodium Potassium Chloride Carbon Dioxide Anion Gap BUN Creatinine Estim Creat Clear Calc Estimated GFR Random Glucose Estimat Average Glucose Hemoglobin A1c % Calcium Magnesium Total Bilirubin Direct Bilirubin AST ALT Alkaline Phosphatase Troponin I High Sens 33.0 H Total Protein Albumin Triglycerides Cholesterol LDL Cholesterol, Calc HDL Cholesterol Urine Color Yellow Urine Appearance Clear Urine pH 7.5 Ur Specific [place] 1.010 Urine Protein Negative Urine Glucose (UA) Negative Urine Ketones Negative Urine Blood Negative Urine Nitrite Negative Ur Leukocyte Esterase Negative COVID-19 (SANDRA) COVID-19 [employer] 12/08/21 12/09/21 12/09/21 15:11 06:21 06:21 WBC 8.7 RBC 4.09 L Hgb 12.9 Hct 38.2 MCV 93.4 MCH 31.5 MCHC 33.8 RDW 13.7 Plt Count 104 L MPV 13.8 H Immature Gran % (Auto) Neut % (Auto) Lymph % (Auto) [place] % (Auto) Eos % (Auto) Baso % (Auto) Lymph # (Auto) [place] # (Auto) Eos # (Auto) Baso # (Auto) Abs Immat Gran (auto) Absolute Neuts (auto) Absolute Nucleated RBC 0.000 Nucleated RBC % (auto) 0.0 PT INR APTT aPTT Heparin Protocol Sodium 141 Potassium 4.0 Chloride 107 Carbon Dioxide 24 Anion Gap 14 BUN 30 H Creatinine 1.17 Estim Creat Clear Calc 26.1 Estimated GFR 44 Random Glucose 84 Estimat Average Glucose Hemoglobin A1c % Calcium 9.5 D Magnesium Total Bilirubin Direct Bilirubin AST ALT Alkaline Phosphatase Troponin I High Sens 539.9 H* D Total Protein Albumin Triglycerides 68 Cholesterol 131 LDL Cholesterol, Calc 60 HDL Cholesterol 58 Urine Color Urine Appearance Urine pH Ur Specific [place] Urine Protein Urine Glucose (UA) Urine Ketones Urine Blood Urine Nitrite Ur Leukocyte Esterase COVID-19 (SANDRA) COVID-19 [employer] 12/09/21 12/09/21 12/09/21 06:21 06:21 06:21 WBC RBC Hgb Hct MCV MCH MCHC RDW Plt Count MPV Immature Gran % (Auto) Neut % (Auto) Lymph % (Auto) [place] % (Auto) Eos % (Auto) Baso % (Auto) Lymph # (Auto) [place] # (Auto) Eos # (Auto) Baso # (Auto) Abs Immat Gran (auto) Absolute Neuts (auto) Absolute Nucleated RBC Nucleated RBC % (auto) PT 11.9 INR 1.0 APTT aPTT Heparin Protocol 28.4 L Sodium Potassium Chloride Carbon Dioxide Anion Gap BUN Creatinine Estim Creat Clear Calc Estimated GFR Random Glucose Estimat Average Glucose 100 Hemoglobin A1c % 5.1 Calcium Magnesium Total Bilirubin Direct Bilirubin AST ALT Alkaline Phosphatase Troponin I High Sens 3787.6 H* D Total Protein Albumin Triglycerides Cholesterol LDL Cholesterol, Calc HDL Cholesterol Urine Color Urine Appearance Urine pH Ur Specific [place] Urine Protein Urine Glucose (UA) Urine Ketones Urine Blood Urine Nitrite Ur Leukocyte Esterase COVID-19 (SANDRA) COVID-19 Clin Com ECG Interpretation: Most recent EKG with sinus rhythm at 66/Min; downsloping STs and T inversions along the anterior leads suggesting LAD territory ischemia. Some progression of EKG findings compared to the admission EKG. Imaging Radiologist's impression: Impressions Chest X-Ray 12/08/21 11:02 IMPRESSION: No acute pulmonary disease. Head/Neck CTA 12/08/21 12:30 IMPRESSION: - No acute intracranial findings. There is moderate chronic microangiopathy. - Extensive atherosclerotic calcification results in an 80% stenosis of the proximal right internal carotid artery and a less than 50% stenosis of the proximal left internal carotid artery. - Atherosclerotic calcification results in a severe stenosis of the right vertebral artery origin Brain MRI 12/08/21 18:13 IMPRESSION: 1. No acute intracranial abnormalities. 2. Moderate underlying microangiopathy and generalized cerebral volume loss. Assessment and Plan (1) Non-ST elevation [place] (NSTEMI): Status: Acute High sensitivity troponins reviewed. They include 33 followed by 540 followed by 3787. Clearly having a non ST elevation myocardial infarction. EKG showing LAD territory ischemia. Echocardiogram pending but bedside limited views suggestive of apical wall motion abnormality. Full studies pending. At this time, continue IV heparin, aspirin, statins. She needs a diagnostic catheterization. Will transfer to [facility] for the same. (2) Stenosis of right carotid artery: Status: Acute Neck CTA shows 80% stenosis of the proximal right internal carotid artery and less than 50% stenosis in the proximal left internal carotid artery. There is also description of atherosclerotic calcification causing severe stenosis of the right vertebral artery origin. Moderate chronic microangiopathy. There is also description of atherosclerotic calcification throughout the aortic arch and great vessel origins. Brain MRI shows no acute findings. Moderate underlying microangiopathy a generalized volume loss. It is certainly possible that the right-sided carotid narrowing as well as vertebral narrowing is causing her dizziness/imbalance type symptoms. Will need vascular surgery consultation at [facility]. Further plan depending on cardiac cath findings. Procedures Date of Service Date of Service: 12/09/21
--- NOTE | 2021-12-09 09:56 | PC.NURSE ---
Verbal order per dr yin - pt to be NPO. ok to have meds PO
[2021-12-09] MEDS: dilTIAZem HCL CD 180 MG CAP.ER.24H 360 MG PO (10:31)
[2021-12-09] MEDS: hydroCHLOROthiazide 25 MG TABLET PO (10:32)
[2021-12-09] MEDS: Aspirin Enteric Coated 81 MG TABLET.DR PO (10:32)
[2021-12-09] MEDS: lisinopriL 20 MG TABLET PO (10:32)
[2021-12-09] MEDS: Calcium + Vitamin D 250 MG TABLET 500 MG PO (10:32)
--- NOTE | 2021-12-09 11:09 | PC.NURSE ---
pt appears to be having AH - reporting that she hears people next to her telling her that she has visitors here but that they cant come in until they are found to be COVID - , informed pt that she has had no visitors. pt becoming irritable that there are people here for her
--- NOTE | 2021-12-09 11:23 | P.DS_ITS ---
DS: Providers Provider Date of Service: 12/09/21 Date of admission: 12/08/21 17:27 Date of discharge: 12/09/21 Primary care physician: Jasmina Alfaro MD Consults: 12/08/21 16:31 Consult to Cardiology Stat Consulting Provider: Adonis Reese Reason for consultation: NSTEMI Has provider been notified: Yes DS: Transfer Hospital Acceptance Reason for Transfer: cardiac catheterization Name of Facility: [facility] DS: Diagnosis Discharge Diagnosis (1) Non-ST elevation [place] (NSTEMI): Status: Acute (2) Dizziness: Status: Acute (3) Cerebrovascular disease: Status: Acute (4) Acute HFrEF (heart failure with reduced ejection fraction): Status: Acute (5) Ischemic cardiomyopathy: Status: Acute DS: Summary Hospital Course Hospital Course: from my admission history and physical, 12/08/21: 85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 She sat up in bed and vomited twice.? No vertigo.? No headache, visual blurring, dyspnea, palpitations, chest pain, chest pressure, or abdominal pain.? Currently she is still dizzy, especially with sitting up. In the ED, orthostatic VS were normal.? Initial hs-Tn-I was 33; 3-hour repeat was 540.? EKG showed NSR with anterolateral TWIs not present on old EKG from 2002.? CXR was normal.? CTA of head and neck with 80% R ICA and 50% L ICA stenoses, and severe stenosis of the R vertebral artery, along with moderate chronic microangiopathy, but no acute territorial infarction.? She was given aspirin and meclizine. MRI of the brain showed moderate underlying microangiopathy and generalized cerebral volume loss, but no acute intracranial abnormalities. She was admitted to the hospitalist service and placed on IV heparin infusion and given aspirin and high-intensity statin. High-sensitivity Tn-I increased further to 3788. The patient did not complain of chest pain but continued to have dizziness. Cardiology was consulted. Echocardiography showed reduced EF of 35% and regional wall motion abnormalities. She was transferred to [facility] for cardiac catheterization. Vascular consultation should also be considered given the findings of anterior and posterior cerebrovascular stenosis. Time Spent with Patient Time attestation: Total time spent providing and/or coordinating discharge services: Discharge coordination time: Greater than 30 minutes Quality: Safe Use of Opioids Does Pt have an Active Cancer Diagnosis on the Problem List?: No Quality: Stroke Does the patient have a stroke diagnosis?: No Physical Exam Vital Signs: Vital Signs: Last Vital Signs Temp 97.8 F 12/09/21 04:00 Pulse 69 12/09/21 07:34 Resp 12 12/09/21 07:34 BP 124/47 L 12/09/21 07:34 Pulse Ox 99 12/09/21 07:34 O2 Del Method 12/09/21 07:34 BMI result Body Mass Index 20.7 Gen: in no acute distress HEENT: sclera anicteric, moist mucus membranes Neck: supple Lungs: clear to auscultation bilaterally Heart: regular rate and rhythm, no murmurs Abd: soft, non-tender, non-distended Ext: no edema Skin: warm/well-perfused Neuro: alert and oriented x3, no focal findings Psych: appropriate affect DS: Data Data Completed and Pending Completed studies during hospitalization [Text1]: Laboratory Results WBC 8.7 X10*3/uL (4.8-10.8) 12/09/21 06:21 RBC 4.09 X10*6/uL (4.20-5.50) L 12/09/21 06:21 Hgb 12.9 g/dl (12.0-16.0) 12/09/21 06:21 Hct 38.2 % (37.0-47.0) 12/09/21 06:21 MCV 93.4 fL (80.0-98.0) 12/09/21 06:21 MCH 31.5 pg (27.0-33.0) 12/09/21 06:21 MCHC 33.8 g/dl (31.0-35.0) 12/09/21 06:21 RDW 13.7 % (11.0-16.0) 12/09/21 06:21 Plt Count 104 X10*3/uL (160-400) L 12/09/21 06:21 MPV 13.8 fL (9.4-12.3) H 12/09/21 06:21 Immature Gran % (Auto) 0.5 % (0.0-0.4) H 12/08/21 11:27 Neut % (Auto) 80.9 % (45-73) H 12/08/21 11:27 Lymph % (Auto) 11.7 % (20-40) L 12/08/21 11:27 [place] % (Auto) 5.9 % (2-11) 12/08/21 11:27 Eos % (Auto) 0.5 % (0-4) 12/08/21 11:27 Baso % (Auto) 0.5 % (0-2) 12/08/21 11:27 Lymph # (Auto) 0.9 X10*3/uL (1.2-4.9) L 12/08/21 11:27 [place] # (Auto) 0.5 X10*3/uL (0.1-1.2) 12/08/21 11:27 Eos # (Auto) 0.0 X10*3/uL (0.0-0.4) 12/08/21 11: Baso # (Auto) 0.0 X10*3/uL (0.0-0.2) 12/08/21 11:27 Abs Immat Gran (auto) 0.04 X10*3/uL (0.00-0.03) H 12/08/21 11:27 Absolute Neuts (auto) 6.5 x10*3/uL (2.0-8.3) 12/08/21 11: Absolute Nucleated RBC 0.000 X10*3/uL (0.0-0.012) 12/09/21 06: Nucleated RBC % (auto) 0.0 /100WBC (0.0-0.2) 12/09/21 06:21 PT 11.9 SEC (10.0-13.1) 12/09/21 06: INR 1.0 (0.9-1.1) 12/09/21 06:21 APTT 27.2 SEC (26.0-36.4) 12/08/21 11: aPTT Heparin Protocol 28.4 SEC (53-77.9) L 12/09/21 06:21 Sodium 141 mmol/L (135-145) 12/09/21 06:21 Potassium 4.0 mmol/L (3.3-5.1) 12/09/21 06:21 Chloride 107 mmol/L (96-108) 12/09/21 06:21 Carbon Dioxide 24 mmol/L (22-29) 12/09/21 06:21 Anion Gap 14 (12-20) 12/09/21 06:21 BUN 30 mg/dL (9-16) H 12/09/21 06:21 Creatinine 1.17 mg/dL (0.5-1.4) 12/09/21 06:21 Estim Creat Clear Calc 26.1 12/09/21 06:21 Estimated GFR 44 12/09/21 06:21 Random Glucose 84 mg/dL (60-115) 12/09/21 06:21 Estimat Average Glucose 100 mg/dL 12/09/21 06:21 Hemoglobin A1c % 5.1 % 12/09/21 06:21 Calcium 9.5 mg/dL (8.4-10.2) D 12/09/21 06:21 Magnesium 1.7 mg/dL (1.6-2.6) 12/08/21 11:27 Total Bilirubin 0.6 mg/dL (0.0-1.0) 12/08/21 11:27 Direct Bilirubin 0.3 mg/dL (0.0-0.5) 12/08/21 11:27 AST 24 U/L (5-31) 12/08/21 11:27 ALT 14 U/L (0-31) 12/08/21 11:27 Alkaline Phosphatase 85 U/L (39-117) 12/08/21 11:27 Troponin I High Sens 3787.6 ng/L (<3.5-17.0) H* D 12/09/21 06:21 Total Protein 6.5 g/dL (6.5-8.0) 12/08/21 11:27 Albumin 3.8 g/dL (3.5-5.0) 12/08/21 11:27 Triglycerides 68 mg/dL 12/09/21 06:21 Cholesterol 131 mg/dL 12/09/21 06:21 LDL Cholesterol, Calc 60 mg/dl 12/09/21 06:21 HDL Cholesterol 58 mg/dL 12/09/21 06:21 Urine Color Yellow 12/08/21 11:45 Urine Appearance Clear 12/08/21 11:45 Urine pH 7.5 (5.0-8.0) 12/08/21 11:45 Ur Specific [place] 1.010 (1.005-1.025) 12/08/21 11:45 Urine Protein Negative mg/dL (Neg-Trace) 12/08/21 11:45 Urine Glucose (UA) Negative mg/dL (Negative) 12/08/21 11:45 Urine Ketones Negative mg/dL (Negative) 12/08/21 11:45 Urine Blood Negative (Negative) 12/08/21 11:45 Urine Nitrite Negative (Negative) 12/08/21 11:45 Ur Leukocyte Esterase Negative (Negative) 12/08/21 11:45 COVID-19 (SANDRA) Negative (Negative) 12/08/21 11:20 COVID-19 Clin Com See Note 12/08/21 11:20 Impressions Chest X-Ray 12/08/21 11:02 IMPRESSION: No acute pulmonary disease. Head/Neck CTA 12/08/21 12:30 IMPRESSION: - No acute intracranial findings. There is moderate chronic microangiopathy. - Extensive atherosclerotic calcification results in an 80% stenosis of the proximal right internal carotid artery and a less than 50% stenosis of the proximal left internal carotid artery. - Atherosclerotic calcification results in a severe stenosis of the right vertebral artery origin Brain MRI 12/08/21 18:13 IMPRESSION: 1. No acute intracranial abnormalities. 2. Moderate underlying microangiopathy and generalized cerebral volume loss. TTE 12/09/21 ?The left ventricular systolic function is moderately decreased. The calculated ejection fraction is 35% by biplane method. ? ? ? - The entire apex, the mid anterior, and mid anteroseptal? segments are akinetic. ? - No obvious valvular pathology seen on this study.? Discharge Plan Discharge Patient Disposition: Xfer Acute Care Hospital Discharge Diagnosis: NSTEMI, ischemic cardiomyopathy, acute HFrEF, dizziness, cerebrovascular disease Referrals: Jasmina Juarez MD [Primary Care Provider] - 1 Week Adonis Reese MD [Physician] - 1 Week Discharge Medications: New atorvastatin 80 mg Tablet 80 mg PO BEDTIME Qty: 1 0RF aspirin 81 mg Tablet,Delayed Release (Dr/Ec) 81 mg PO DAILY Qty: 1 0RF nitroglycerin [Nitrostat] 0.4 mg Tablet, Sublingual 0.4 mg sublingual Q5MX3 PRN (Reason: Chest Pain) Qty: 1 0RF heparin (porcine) 5,000 unit/mL Solution 1,900 unit IVPUSH PROTOCOL BOLUS PRN (Reason: 40 Unit/Kg - Heparin Protocol) Qty: 1 0RF heparin (porcine) 5,000 unit/mL Solution 3,800 unit IVPUSH PROTOCOL BOLUS PRN (Reason: 80 Unit/Kg - Heparin Protocol) Qty: 1 0RF heparin(porcine) in 0.45% NaCl 25,000 unit/250 mL Parenteral Solution 25,000 unit continuous IV infusion .Q0M Qty: 1 0RF morphine 4 mg/mL Syringe 2 mg IVPUSH Q4H PRN (Reason: Pain, Severe (Pain Scale 7-10)) Qty: 1 0RF Protocol: Hold for RR < HOLD and contact provider for RR < (bpm): 12 Rx Instructions: Partial Fill upon patient request. metoprolol succinate 25 mg tablet extended release 24 hr 12.5 mg PO DAILY Qty: 1 0RF Continued lisinopril 20 mg tablet 20 mg PO DAILY 90 Days Qty: 90 3RF hydrochlorothiazide 25 mg tablet 25 mg PO QAM 90 Days Qty: 90 3RF calcium carbonate-vitamin D3 600 mg-10 mcg (400 unit) capsule 1 cap PO BID 90 Days Qty: 180 2RF Discontinued atorvastatin 20 mg tablet 20 mg PO DAILY 90 Days Qty: 90 3RF diltiazem HCl 360 mg capsule,extended release 24hr 360 mg PO DAILY 90 Days Qty: 90 1RF Diet: Low salt diet Activity on Discharge: As tolerated Stand Alone Forms: Patient Portal Discharge page Care Plan Goals: diagnosis and management of coronary artery and cerebrovascular disease Health Concerns: NSTEMI, ischemic cardiomyopathy, acute HFrEF, dizziness, cerebrovascular disease Plan of Treatment: transfer to [facility] for cardiac catheterization and vascular evaluation Assessment: See Discharge Summary Patient Instructions: Heart Catheterization (DC)
[2021-12-09 11:42] VITALS: BP 129/54; PULSE 66; RESP 14; O2SAT 94
--- NOTE | 2021-12-09 11:47 | MHC.CM.PN ---
PT REPORTS SHE LIVES AT [facility] SHE REPORTS SHE DOES HAVE HELP AVAILABLE THERE FOR THINGS LIKE HOUSEKEEPING AND LAUNDRY-SHE CAN REQUEST ASSISTANCE PRN PT REPORTS SHE HAS A CANE THAT SHE USES WHEN SHE FEELS NECESSARY PT REPORTS SHE HAS COMPLETED A HCP, SHE SAYS IT IS CURRENTLY [facility] PELAYO, SHE WAS RECENTLY ELECTED THE PRESIDENT OF THEIR ORGANIZATION PT IS COVID-19 VACCINATED WITH PFIZER X 2 AND MODERNA X 1 PCP: RENETTA TRAN IMM DELIVERED: COPY SENT TO [facility] CURRENT DC PLAN IS ACUTE CARE TRANSFER TO [facility]
--- NOTE | 2021-12-09 12:08 | PC.NURSE ---
Mingo Nix made aware of pts AH, no new orders at this time. t/w moved pt into a more visible room, closer to the nurses station for observation as we wait for transport to [facility] [place]. pt aware of plan to transport.
--- NOTE | 2021-12-09 13:17 | HO.PM.IMPN ---
Subjective Subjective Date of Service: 12/09/21 Interval History: still dizzy/lightheaded though less so in retrospect, endorses mild chest discomfort with activity over the last few months [gardening, etc] Review of Systems Review of Systems: Yes all other systems are reviewed and are negative Physical Exam Vital Signs: Vital Signs: Last Vital Signs Temp 97.8 F 12/09/21 04:00 Pulse 66 12/09/21 11:42 Resp 14 12/09/21 11:42 BP 129/54 L 12/09/21 11:42 Pulse Ox 94 12/09/21 11:42 O2 Del Method 12/09/21 11:42 BMI result Body Mass Index 20.7 Gen: in no acute distress HEENT: sclera anicteric, moist mucus membranes Neck: supple Lungs: clear to auscultation bilaterally Heart: regular rate and rhythm, no murmurs Abd: soft, non-tender, non-distended Ext: no edema Skin: warm/well-perfused Neuro: alert and oriented x3, no focal findings Psych: appropriate affect Objective Data Active Medications Acetaminophen (Acetaminophen 325 Mg Tablet) 650 mg PO Q6H PRN PRN Reason: Pain, Mild (Pain Scale 1-3) Al Hydroxide/Mg Hydroxide (Magnesium Hydrox/Alum Hydrox 30 Ml Oral.Susp) 30 ml PO Q4H PRN PRN Reason: Heartburn/Nausea Aspirin (Aspirin Enteric Coated 81 Mg Tablet.) 81 mg PO DAILY [facility] Last Admin: 12/09/21 10:32 Dose: 81 mg Documented By: DAMI Atorvastatin Calcium (Atorvastatin Calcium 80 Mg Tablet) 80 mg PO BEDTIME [facility] Last Admin: 12/08/21 19:32 Dose: 80 mg Documented By: COOPEAravind Calcium Carbonate/Cholecalciferol (Calcium + Vitamin D 250 Mg Tablet) 500 mg PO BID [facility] Last Admin: 12/09/21 10:32 Dose: 500 mg Documented By: DAMI Diltiazem HCl (Diltiazem Hcl Cd 180 Mg Cap.Er.24h) 360 mg PO DAILY [facility]; Protocol Last Admin: 12/09/21 10:31 Dose: 360 mg Documented By: DAMI Heparin Sodium (Porcine) (Heparin Sodium,Porcine 5,000 Unit/Ml Vial) 1,900 unit 40 unit/kg (1900 unit) IVPUSH PROTOCOL BOLUS PRN; Protocol PRN Reason: 40 unit/kg - Heparin Protocol Heparin Sodium (Porcine) (Heparin Sodium,Porcine 5,000 Unit/Ml Vial) 3,800 unit 80 unit/kg (3800 unit) IVPUSH PROTOCOL BOLUS PRN; Protocol PRN Reason: 80 unit/kg - Heparin Protocol Hydrochlorothiazide (Hydrochlorothiazide 25 Mg Tablet) 25 mg PO DAILY [facility]; Protocol Last Admin: 12/09/21 10:32 Dose: 25 mg Documented By: DAMI Heparin Sodium/Sodium Chloride (Heparin Sodium,Porcine/1/2ns) 25,000 unit in 250 mls @ 0 mls/hr IVCONT .Q0M [facility]; Protocol Last Admin: 12/09/21 07:55 Dose: 14 units/kg/hr, 6.73 mls/hr Documented By: DAMI Co-signed By: NGHIA Lisinopril (Lisinopril 20 Mg Tablet) 20 mg PO DAILY [facility]; Protocol Last Admin: 12/09/21 10:32 Dose: 20 mg Documented By: DAMI Morphine Sulfate (Morphine Sulfate 4 Mg/Ml Cartridge) 2 mg IVPUSH Q4H PRN; Protocol PRN Reason: Pain, Severe (Pain Scale 7-10) Nitroglycerin (Nitroglycerin 0.4 Mg Tab.Subl) 0.4 mg SUBLINGUAL Q5MX3 PRN PRN Reason: Chest Pain Ondansetron HCl (Ondansetron Hcl 4 Mg/2 Ml Vial) 4 mg IVPUSH Q8H PRN PRN Reason: Nausea and Vomiting Pharmacy Consult (Consult Rx Perform Med Rec) 1 each MISCELLANE ONCE PRN PRN Reason: Consult order Sodium Chloride (0.9 % Sodium Chloride Flush 3 Ml Syringe) 3 ml IVFLUSH QSHIFT [facility] Last Admin: 12/09/21 09:18 Dose: Not Given Documented By: DAMI Non-Admin Reason: IV Running Labs CBC & Chem 7: 12/09/21 06:21 12/09/21 06:21 Labs: Laboratory Results - last 24 hr 12/09/21 12/09/21 12/09/21 06:21 06:21 06:21 MCV 93.4 MCH 31.5 MCHC 33.8 RDW 13.7 Plt Count 104 L MPV 13.8 H Absolute Nucleated RBC 0.000 Nucleated RBC % (auto) 0.0 PT INR aPTT Heparin Protocol Anion Gap 14 Estim Creat Clear Calc 26.1 Estimated GFR 44 Random Glucose 84 Estimat Average Glucose 100 Hemoglobin A1c % 5.1 Calcium 9.5 D Triglycerides 68 Cholesterol 131 LDL Cholesterol, Calc 60 HDL Cholesterol 58 12/09/21 06:21 MCV MCH MCHC RDW Plt Count MPV Absolute Nucleated RBC Nucleated RBC % (auto) PT 11.9 INR 1.0 aPTT Heparin Protocol 28.4 L Anion Gap Estim Creat Clear Calc Estimated GFR Random Glucose Estimat Average Glucose Hemoglobin A1c % Calcium Triglycerides Cholesterol LDL Cholesterol, Calc HDL Cholesterol TTE 12/09/21 - The left ventricular systolic function is moderately decreased. The calculated ejection fraction is 35% by biplane method. ? ? ? - The entire apex, the mid anterior, and mid anteroseptal? segments are akinetic. ? - No obvious valvular pathology seen on this study.? Assessment and Plan (1) Cerebrovascular disease: Status: Acute (2) Stenosis of right carotid artery: Status: Acute (3) Non-ST elevation CA (NSTEMI): Status: Acute Plan hospital d#2 85yo F with HTN + HLD presenting with dizziness, admitted for NSTEMI # NSTEMI # ischemic CM # acute HFrEF - transfer to [facility] [place] for cardiac cath; continue medical management with heparinization, ASA, high-intensity statin # cerebrovascular disease - Vascular Surg consult at [facility] # HTN - d/c diltiazem, continue lisinopril, start metoprolol succinate # VTE ppx: heparin In my clinical judgment, the patient requires continued hospitalization for the following reasons: NSTEMI Quality Stroke Does the patient have a stroke diagnosis?: No VTE Prior VTE?: No VTE Risk Level:: Medical - moderate - high VTE Device Contraindication: N/A - Device Ordered VTE Drug Contraindication: N/A - Med Ordered
[2021-12-09 14:39] LABS: PTT Heparin Drip 75.2 SEC (53-77.9)
== END 2021-12-09 19:02 | disposition short-term general hospital (02) | DRG 282 ==
LOC: HO.ED 18:35 → HO.EDOVER 18:53
PROVIDERS: Internal Medicine; Physician Assistant; Admitting Provider Family Medicine; Emergency Provider Emergency Medicine; PCP Internal Medicine; Visit Provider Family Medicine
DX: I21.4 Non-ST elevation (NSTEMI) myocardial infarction (principal); Z66 Do not resuscitate; I65.21 Occlusion and stenosis of right carotid artery; I10 Essential (primary) hypertension; E78.5 Hyperlipidemia, unspecified; D69.6 Thrombocytopenia, unspecified; Z20.822 Contact with and (suspected) exposure to COVID-19; Z79.82 Long term (current) use of aspirin; Z79.899 Other long term (current) drug therapy
CPT/HCPCS: 36415; 70496; 70498; 70551; 71045; 80048; 80061; 80076; 81003; 83036; 83735; 84484; 85025; 85027; 85610; 85730; 87635; 93005; 93306; 99285; J2405; Q0163; Q9957; Q9967

== ENCOUNTER 2022-01-10 00:11 | Inpatient (IN) | payer OTHER, SELFPAY ==
[2022-01-10] VITALS (12 sets, daily range): BP systolic 98–151; BP diastolic 50–84; PULSE 84–110; RESP 16–39; TEMP 36.3–36.9; O2SAT 84–97; BMI 29.8; BMI 20.9
--- NOTE | ~2022-01-10 | XR_ITS ---
EXAMINATION: XR CHEST CLINICAL INFORMATION: Pain COMPARISON: 12/08/2021 TECHNIQUE: Frontal view of the chest was obtained. FINDINGS: The lungs are hypoexpanded. Prominent interstitial markings bilaterally with bronchial wall thickening. Small pleural effusions. No pneumothorax. The cardiomediastinal silhouette is normal in size, with a calcified aorta. XR/XR chest 1V IMPRESSION: Small pleural effusions. Prominent interstitial markings throughout the lungs with bronchial wall thickening likely associated with fluid overload. Infectious process possible.
--- NOTE | ~2022-01-10 | CT_ITS ---
EXAMINATION: CT HEAD WITHOUT CONTRAST (STROKE PROTOCOL) CLINICAL INFORMATION: Stroke protocol. Acute confusion. COMPARISON: MR brain 12/08/2021, CTA head and neck 12/08/2021 TECHNIQUE: Contiguous axial imaging was performed from the skull base to vertex without intravenous administration of contrast. This CT examination was performed using dose optimization techniques as appropriate, variously including the following: *Automated exposure control *Adjustment of mA and/or kV according to patient size (this includes techniques or standardized protocols for targeted exams where dose is matched to indication/reason for exam; i.e. extremities or head) *Use of iterative reconstruction technique DLP: 691 mGy-cm FINDINGS: There is no intracranial hemorrhage, hematoma, or extra-axial fluid collection. There are atrophic changes with prominence of the cortical sulci and fissures and cisterns and mild ventricular prominence. There is no hydrocephalus or edema or mass effect or midline shift. Scattered bilateral periventricular white matter hypodensities are similar to recent imaging. The sheridan-white matter differentiation appears well preserved . There is no visible acute territorial infarct or mass lesion. The calvarium appears intact. There is no pneumocephalus or orbital emphysema. The visualized sinuses and middle ears and mastoid air cells show no significant mucosal thickening. There are no air-fluid levels. Results are called and discussed with ordering provider Pat Flores NP at [address]/CT head for stroke IMPRESSION: No acute intracranial abnormality on noncontrast CT head.
--- NOTE | 2022-01-10 00:30 | ECG_ITS ---
Test Reason : SOB Blood Pressure : / mmHG Vent. Rate : 108 BPM Atrial Rate : 000 BPM P-R Int : 000 ms QRS Dur : 098 ms QT Int : 306 ms P-R-T Axes : 000 -25 131 degrees QTc Int : 410 ms Sinus tachycardia with occasional Premature ventricular complexes Low voltage QRS Incomplete right bundle branch block Septal infarct , age undetermined Nonspecific T wave abnormality Abnormal ECG When compared with ECG of 08-DEC-2021 16:41, Vent. rate has increased BY 42 BPM Incomplete right bundle branch block is now Present Septal infarct is now Present T wave inversion no longer evident in Anterior leads Referred By: Porsha Rodriguez Electronically Signed By:SHELBY MONTANO
--- NOTE | 2022-01-10 00:33 | ED.SOB ---
HPI - SOB/Dyspnea General Chief Complaint: Dyspnea Stated Complaint: sob/weakness Time Seen by Provider: 01/10/22 00:25 Source: patient and EMS Mode of arrival: EMS Limitations: no limitations History of Present Illness HPI Narrative: Patient comes to the emergency room via EMS complaining of shortness of breath. Patient states that she has been feeling weak this evening, took 2 tablets Tylenol 100 mg p.o. hoping she will feel better. However, the shortness of breath kept getting much worse. Patient called 911. Patient states that she is not oxygen dependent. When EMS arrived, her oxygen saturation was in the low 80s. Patient improved to 84% on 4 L. Here in the emergency room patient is tachypneic, very uncomfortable, able to speak in full sentences, oxygen saturation 88% on 6 L Related Data Home Medications Medication Instructions Recorded Confirmed clopidogrel 75 mg tablet 75 mg PO DAILY 01/06/22 valsartan 40 mg tablet 40 mg PO DAILY 01/06/22 Previous Rx's Medication Instructions Recorded calcium carbonate 600 mg-vitamin 1 cap PO BID 90 days #180 caps 12/04/21 D3 10 mcg (400 unit) capsule aspirin 81 mg tablet,delayed 81 mg PO DAILY #1 tab 12/09/21 release metoprolol succinate 25 mg 12.5 mg PO DAILY #1 tab 12/09/21 tablet,extended release 24 hr nitroglycerin 0.4 mg sublingual 0.4 mg sublingual Q5MX3 PRN Chest 12/09/21 tablet (Nitrostat) Pain #1 tab lisinopril 20 mg tablet 20 mg PO DAILY 90 days #90 tabs 12/15/21 atorvastatin 80 mg tablet 80 mg PO BEDTIME #1 tab 12/22/21 hydrochlorothiazide 25 mg tablet 25 mg PO QAM 90 days #90 tabs 12/22/21 Allergies Allergy/AdvReac Type Severity Reaction Status Date / Time No Known Allergies Allergy Verified 01/10/22 00:29 Review of Systems Review of Systems: Constitutional : No Weight loss, No Fever, No Chills, No Night Sweats, No Fatigue, No Malaise ENT/Mouth : No Hearing loss, No Ear Pain, No Nasal Congestion, No Sinus Pain, No Hoarseness, No sore throat, No Rhinorrhea, No Swallowing Difficulty Eyes: No Eye Pain, No Swelling, No Redness, No Foreign Body, No Discharge, No Vision Changes Cardiovascular : No chest pain, mild lower extremity edema Respiratory : No Cough, No Sputum, No Wheezing, No Smoke Exposure, complaining of dyspnea Gastrointestinal : No Nausea, No Vomiting, No Diarrhea, No Constipation, No abdominal Pain, No Hematochezia, No Melena Genitourinary : no irregular bleeding, No Dysuria, No Urinary Frequency, No Hematuria, No Urinary Incontinence, No Urgency, No Flank Pain, No Urinary Flow Changes, No Hesitancy Musculoskeletal : No joint pain, No Myalgias, No Joint Swelling Skin : No Skin Lesions, No rash Neuro : No Weakness, No Numbness, No Paresthesias, No Loss of Consciousness, No Dizziness, No Headache Psych : No Anxiety/Panic, No Depression, No SI/HI/AH/VH, No Social Issues, Heme/Lymph: No Bruising, No Bleeding,No Lymphadenopathy Endocrine : No Polyuria, No Polydipsia, No Temperature Intolerance PMFSH Past Medical History Medical History Acute HFrEF (heart failure with reduced ejection fraction) Cerebrovascular disease Dyslipidemia Essential hypertension Ischemic cardiomyopathy Non-ST elevation [place] (NSTEMI) Surgical History History of arthroscopy of left knee Family History Family History Father No problems noted. Mother No problems noted. Social History Social History Housing: Apartment Alcohol intake: never Patient Tobacco Use Status: Never used Tobacco e-Cigarette/Vaping Use: Never Used Second Hand Smoke Exposure: No Use of substances other than those prescribed or required for medical reasons: No Advance Directives: No Advance Directives Information Provided: Yes service: No Current occupational status: retired Cognitive needs: No Hearing needs: Yes Vision needs: Yes Physical Exam Vital Signs: Vital Signs: Last Vital Signs Pulse 103 H 01/10/22 00:30 Resp 39 H 01/10/22 01:04 BP 151/79 H 01/10/22 00:30 Pulse Ox 89 L 01/10/22 00:30 O2 Del Method 01/10/22 00:30 O2 Flow Rate 5 01/10/22 00:30 Oxygen Flow Rate 5 01/10/22 00:17 BMI result Body Mass Index 29.8 Const: Other: Appearance: Alert. Oriented X3. Ill-appearing Eyes: Pupils equal, round and reactive to light. ENT: Pharynx normal. Neck: Normal inspection. Neck supple. No lymph nodes noted. No crepitus CVS: Mildly tachycardic, in the low 100s, regular rhythm. Pulses normal. Normal S1 and S2 Respiratory: Tachypneic, bilateral crackles, no wheezing oxygen saturation 88% on 6 L, respiratory rate 40 Abdomen: Soft and nontender. No rigidity. No distention. Skin: Skin warm and dry. Normal skin color. Normal skin turgor. Extremities: +2 pitting edema bilaterally Neuro: Oriented X 3. No motor deficit. No sensory deficit. Moving all extremities. No slurred speech. CN 2 through 12 grossly intact Psych: calm, cooperative Course Course Course Narrative: Patient remains hypoxic even on 6 L, patient is likely in CHF exacerbation, patient will be placed on BiPAP and we will attempt to wean her. All of patient's labs and imaging are pending, Lasix 40 mg IV have been ordered And was weaned off BiPAP, oxygen saturation is 96% on 2 L, breathing comfortably. Patient's BNP is 3500, troponin 208 which is down from 3700 from the last time patient was here for an NSTEMI. At this time, patient has no chest pain or shortness of breath Lactic acid the patient is likely secondary to prolonged hypoxia. Sepsis is not suspected. Antibiotics are not indicated at this time. MDM - SOB/Dyspnea Lab Data Result diagrams: 01/10/22 00:54 01/10/22 01:54 Labs: Lab Results 01/10/22 01/10/22 01/10/22 Range/Units 00:37 00:54 00:54 WBC 9.2 (4.8-10.8) X10*3/uL RBC 4.05 L (4.20-5.50) X10*6/uL Hgb 12.6 (12.0-16.0) g/dl Hct 39.5 (37.0-47.0) % MCV 97.5 (80.0-98.0) fL MCH 31.1 (27.0-33.0) pg MCHC 31.9 (31.0-35.0) g/dl RDW 14.5 (11.0-16.0) % Plt Count 123 L (160-400) X10*3/uL MPV 14.7 H (9.4-12.3) fL Immature Gran % (Auto) 0.4 (0.0-0.4) % Neut % (Auto) 83.8 H (45-73) % Lymph % (Auto) 12.7 L (20-40) % Gentry % (Auto) 2.1 (2-11) % Eos % (Auto) 0.3 (0-4) % Baso % (Auto) 0.7 (0-2) % Lymph # (Auto) 1.2 (1.2-4.9) X10*3/uL Gentry # (Auto) 0.2 (0.1-1.2) X10*3/uL Eos # (Auto) 0.0 (0.0-0.4) X10*3/uL Baso # (Auto) 0.1 (0.0-0.2) X10*3/uL Abs Immat Gran (auto) 0.04 H (0.00-0.03) X10*3/uL Absolute Neuts (auto) 7.7 (2.0-8.3) x10*3/uL Absolute Nucleated RBC 0.000 (0.0-0.012) X10*3/uL Nucleated RBC % (auto) 0.0 (0.0-0.2) /100WBC Smear Tech's Comments VERIFIED PT (10.0-13.1) SEC INR (0.9-1.1) VBG pH (7.32-7.43) VBG pCO2 mmHg VBG pO2 mmHg VBG HCO3 (22-26) mmol/L VBG O2 Saturation % VBG Base Excess mmol/L Sodium (135-145) mmol/L Potassium (3.3-5.1) mmol/L Chloride (96-108) mmol/L Carbon Dioxide (22-29) mmol/L Anion Gap (12-20) BUN (9-16) mg/dL Creatinine (0.5-1.4) mg/dL Estim Creat Clear Calc Estimated GFR Random Glucose (60-115) mg/dL Lactic Acid 4.9 H* (0.5-2.0) mmol/L Calcium (8.4-10.2) mg/dL Total Bilirubin (0.0-1.0) mg/dL Direct Bilirubin (0.0-0.5) mg/dL AST (5-31) U/L ALT (0-31) U/L Alkaline Phosphatase (39-117) U/L Troponin I High Sens (<3.5-17.0) ng/L B-Natriuretic Peptide (<100) pg/mL Total Protein (6.5-8.0) g/dL Albumin (3.5-5.0) g/dL COVID-19 (SANDRA) Negative (Negative) COVID-19 Clin Com See Note 01/10/22 01/10/22 01/10/22 Range/Units 00:54 01:03 01:54 WBC (4.8-10.8) X10*3/uL RBC (4.20-5.50) X10*6/uL Hgb (12.0-16.0) g/dl Hct (37.0-47.0) % MCV (80.0-98.0) fL MCH (27.0-33.0) pg MCHC (31.0-35.0) g/dl RDW (11.0-16.0) % Plt Count (160-400) X10*3/uL MPV (9.4-12.3) fL Immature Gran % (Auto) (0.0-0.4) % Neut % (Auto) (45-73) % Lymph % (Auto) (20-40) % Gentry % (Auto) (2-11) % Eos % (Auto) (0-4) % Baso % (Auto) (0-2) % Lymph # (Auto) (1.2-4.9) X10*3/uL Gentry # (Auto) (0.1-1.2) X10*3/uL Eos # (Auto) (0.0-0.4) X10*3/uL Baso # (Auto) (0.0-0.2) X10*3/uL Abs Immat Gran (auto) (0.00-0.03) X10*3/uL Absolute Neuts (auto) (2.0-8.3) x10*3/uL Absolute Nucleated RBC (0.0-0.012) X10*3/uL Nucleated RBC % (auto) (0.0-0.2) /100WBC Smear Tech's Comments PT 13.4 H (10.0-13.1) SEC INR 1.2 H (0.9-1.1) VBG pH 7.35 (7.32-7.43) VBG pCO2 24 mmHg VBG pO2 87 mmHg VBG HCO3 13 L (22-26) mmol/L VBG O2 Saturation 97.0 % VBG Base Excess -9.8 mmol/L Sodium (135-145) mmol/L Potassium (3.3-5.1) mmol/L Chloride (96-108) mmol/L Carbon Dioxide (22-29) mmol/L Anion Gap (12-20) BUN (9-16) mg/dL Creatinine (0.5-1.4) mg/dL Estim Creat Clear Calc Estimated GFR Random Glucose (60-115) mg/dL Lactic Acid (0.5-2.0) mmol/L Calcium (8.4-10.2) mg/dL Total Bilirubin (0.0-1.0) mg/dL Direct Bilirubin (0.0-0.5) mg/dL AST (5-31) U/L ALT (0-31) U/L Alkaline Phosphatase (39-117) U/L Troponin I High Sens 208.6 H* D (<3.5-17.0) ng/L B-Natriuretic Peptide 3509 H (<100) pg/mL Total Protein (6.5-8.0) g/dL Albumin (3.5-5.0) g/dL COVID-19 (SANDRA) (Negative) COVID-19 Clin Com 01/10/22 Range/Units 01:54 WBC (4.8-10.8) X10*3/uL RBC (4.20-5.50) X10*6/uL Hgb (12.0-16.0) g/dl Hct (37.0-47.0) % MCV (80.0-98.0) fL MCH (27.0-33.0) pg MCHC (31.0-35.0) g/dl RDW (11.0-16.0) % Plt Count (160-400) X10*3/uL MPV (9.4-12.3) fL Immature Gran % (Auto) (0.0-0.4) % Neut % (Auto) (45-73) % Lymph % (Auto) (20-40) % Gentry % (Auto) (2-11) % Eos % (Auto) (0-4) % Baso % (Auto) (0-2) % Lymph # (Auto) (1.2-4.9) X10*3/uL Gentry # (Auto) (0.1-1.2) X10*3/uL Eos # (Auto) (0.0-0.4) X10*3/uL Baso # (Auto) (0.0-0.2) X10*3/uL Abs Immat Gran (auto) (0.00-0.03) X10*3/uL Absolute Neuts (auto) (2.0-8.3) x10*3/uL Absolute Nucleated RBC (0.0-0.012) X10*3/uL Nucleated RBC % (auto) (0.0-0.2) /100WBC Smear Tech's Comments PT (10.0-13.1) SEC INR (0.9-1.1) VBG pH (7.32-7.43) VBG pCO2 mmHg VBG pO2 mmHg VBG HCO3 (22-26) mmol/L VBG O2 Saturation % VBG Base Excess mmol/L Sodium 140 (135-145) mmol/L Potassium 3.9 (3.3-5.1) mmol/L Chloride 106 (96-108) mmol/L Carbon Dioxide 18 L (22-29) mmol/L Anion Gap 20 (12-20) BUN 28 H (9-16) mg/dL Creatinine 1.38 (0.5-1.4) mg/dL Estim Creat Clear Calc 27.5 Estimated GFR 36 Random Glucose 186 H (60-115) mg/dL Lactic Acid (0.5-2.0) mmol/L Calcium 10.5 H D (8.4-10.2) mg/dL Total Bilirubin 0.6 (0.0-1.0) mg/dL Direct Bilirubin 0.3 (0.0-0.5) mg/dL AST 38 H D (5-31) U/L ALT 33 H (0-31) U/L Alkaline Phosphatase 80 (39-117) U/L Troponin I High Sens (<3.5-17.0) ng/L B-Natriuretic Peptide (<100) pg/mL Total Protein 5.8 L (6.5-8.0) g/dL Albumin 3.5 (3.5-5.0) g/dL COVID-19 (SANDRA) (Negative) COVID-19 Clin Com Critical Care Time Critical Care Time Critical Care Time: Yes Total Critical Care Time: 90 Attestation: I have personally provided critical care time. Time includes review of lab data, radiology results, discussion with consultants, and monitoring for potential decompensation. Intervention performed as documented. Discharge Plan Discharge Clinical Impression: Acute CHF (congestive heart failure) Patient Disposition: Admitted As Inpatient Prescriptions: No Action calcium carbonate-vitamin D3 600 mg-10 mcg (400 unit) capsule 1 cap PO BID 90 Days Qty: 180 2RF lisinopril 20 mg tablet 20 mg PO DAILY 90 Days Qty: 90 3RF hydrochlorothiazide 25 mg tablet 25 mg PO QAM 90 Days Qty: 90 3RF atorvastatin 80 mg tablet 80 mg PO BEDTIME Qty: 1 0RF aspirin 81 mg Tablet,Delayed Release (Dr/Ec) 81 mg PO DAILY Qty: 1 0RF nitroglycerin [Nitrostat] 0.4 mg Tablet, Sublingual 0.4 mg sublingual Q5MX3 PRN (Reason: Chest Pain) Qty: 1 0RF metoprolol succinate 25 mg tablet extended release 24 hr 12.5 mg PO DAILY Qty: 1 0RF valsartan 40 mg tablet 40 mg PO DAILY clopidogrel 75 mg tablet 75 mg PO DAILY
[2022-01-10] MEDS: Ondansetron ODT 4 MG TAB.RAPDIS TRANSLINGU (00:36)
[2022-01-10] MEDS: Furosemide 40 MG/4 ML VIAL IVPUSH ×3 (00:58→17:03)
[2022-01-10 01:03] LABS: COVID-19 Test Negative (Negative); IDNOW Serial# 16C4AD1C
[2022-01-10 01:09] LABS: VBG Base Excess -9.8 mmol/L; VBG HCO3 13 mmol/L (22-26); VBG pCO2 24 mmHg; VBG pH 7.35 (7.32-7.43); VBG pO2 87 mmHg
[2022-01-10 01:10] LABS: Venous Blood Gas Refer to POC result
[2022-01-10 01:14] LABS: Basophils Absolute Auto 0.1 X10*3/uL (0.0-0.2); Basophils Percent Auto 0.7 % (0-2); Imm Gran Abs Auto 0.04 X10*3/uL (0.00-0.03); Imm Gran Pct Auto 0.4 % (0.0-0.4); MANUAL DIFF FLAG SCAN; Neutrophils Absolute Auto 7.7 x10*3/uL (2.0-8.3); Red Cell Distribution Width 14.5 % (11.0-16.0); SCAN SMEAR FLAG 1
[2022-01-10 01:16] LABS: Eosinophils Percent Auto 0.3 % (0-4); Hematocrit 39.5 % (37.0-47.0); Hemoglobin 12.6 g/dl (12.0-16.0); Lymphocytes Absolute Auto 1.2 X10*3/uL (1.2-4.9); Lymphocytes Percent Auto 12.7 % (20-40); Mean Corpuscular HGB Conc 31.9 g/dl (31.0-35.0); Mean Corpuscular Hemoglobin 31.1 pg (27.0-33.0); Mean Corpuscular Volume 97.5 fL (80.0-98.0); Mean Platelet Volume 14.7 fL (9.4-12.3); Monocytes Absolute Auto 0.2 X10*3/uL (0.1-1.2); Monocytes Percent Auto 2.1 % (2-11); Neutrophils Percent Auto 83.8 % (45-73); PLT CLUMP 1; Red Blood Count 4.05 X10*6/uL (4.20-5.50)
[2022-01-10 01:17] LABS: PLT ABN DIST 1
[2022-01-10 01:19] LABS: White Blood Count 9.2 X10*3/uL (4.8-10.8)
[2022-01-10 01:24] LABS: Lactic Acid 4.9 mmol/L (0.5-2.0)
[2022-01-10 01:32] LABS: B Type Natriuretic Peptide 3509 pg/mL (<100); Troponin-I High Sensitivity 208.6 ng/L (<3.5-17.0)
[2022-01-10 01:33] LABS: Platelet Count 123 X10*3/uL (160-400)
[2022-01-10 01:34] LABS: SLIDE REVIEW VERIFIED
[2022-01-10 02:09] LABS: INTERNATIONAL NORM RATIO 1.2 (0.9-1.1); Prothrombin Time 13.4 SEC (10.0-13.1)
[2022-01-10 02:24] LABS: Alanine Aminotransferase 33 U/L (0-31); Albumin Level 3.5 g/dL (3.5-5.0); Alkaline Phosphatase 80 U/L (39-117); Anion Gap 20 (12-20); Aspartate Amino Transferase 38 U/L (5-31); Bilirubin Direct 0.3 mg/dL (0.0-0.5); Bilirubin Total 0.6 mg/dL (0.0-1.0); Blood Urea Nitrogen 28 mg/dL (9-16); Calcium 10.5 mg/dL (8.4-10.2); Carbon Dioxide 18 mmol/L (22-29); Chloride 106 mmol/L (96-108); Creatinine Clr Calc Pharmacy 27.5; Estimated Glomerular Filt Rate 36; Glucose Random 186 mg/dL (60-115); Potassium 3.9 mmol/L (3.3-5.1); Sodium 140 mmol/L (135-145); Total Protein 5.8 g/dL (6.5-8.0)
[2022-01-10 03:02] LABS: Reflex Lactate? Lactic Acid Added
[2022-01-10 03:36] LABS: ~Lactic Acid-LAB USE ONLY 3.3 mmol/L (0.5-2.0)
--- NOTE | 2022-01-10 03:58 | PC.NURSE ---
pt a&ox3, vss, O2 improved after BiPAP, pt reports that she is feeling much better, denies any sob/chest pain, RR even and unlaboured, pt pending admission.
[2022-01-10 05:22] LABS: Reflex Lactate? 2 Y
--- NOTE | 2022-01-10 06:46 | PM.IMHP ---
History of Present Illness Date of Service: 01/10/22 Chief Complaint: SOB 86-year-old female with past medical history of CAD, ischemic cardiomyopathy, heart failure with reduced ejection fraction, hyperlipidemia, HTN, presents to the hospital with complaints of shortness of breath as well as weakness. Patient reports that she started developing shortness of breath and generalized weakness for the past few days. She reports a dry cough. She has no lower extremity edema, she has orthopnea with no PND. She denies any chest pain, no palpitations, no abdominal pain nausea or vomiting, no diarrhea constipation, no urinary symptoms. Denies any numbness or weakness and no tingling. apparently patient was found to have an O2 in the low 80s on arrival of EMS. Improved to 84 on 4 L of oxygen. Patient was placed on BiPAP in the ED for several hours with improvement in her symptoms. On arrival to the ED patient hemodynamically stable satting 88% on 5 L nasal cannula, having a heart rate of 109, respiratory rate of 38, Labs are significant for WBC count 9.2, hemoglobin of 12.6, pH of 7.35 with no CO2 retention, BUN of 28, creatinine of 1.38 with a baseline of around 1.1, lactic acid of 4.9, AST of 38, ALT of 33, troponin of 208, BNP of 3509, Chest x-ray shows pleural effusion and interstitial markings throughout the lungs associated with fluid overload. currently off BiPAP, and will be admitted for further management Review of Systems Review of Systems: Yes all other systems are reviewed and are negative [facility] Medical History Acute HFrEF (heart failure with reduced ejection fraction) Cerebrovascular disease Dyslipidemia Essential hypertension Ischemic cardiomyopathy Non-ST elevation MT (NSTEMI) Family History Father No problems noted. Mother No problems noted. Surgical History History of arthroscopy of left knee Social History Housing: Apartment Alcohol intake: never Patient Tobacco Use Status: Never used Tobacco e-Cigarette/Vaping Use: Never Used Second Hand Smoke Exposure: No Use of substances other than those prescribed or required for medical reasons: No Advance Directives: No Advance Directives Information Provided: Yes service: No Current occupational status: retired Cognitive needs: No Hearing needs: Yes Vision needs: Yes Meds Allergies Allergy/AdvReac Type Severity Reaction Status Date / Time No Known Allergies Allergy Verified 01/10/22 00:29 Active Medications: Current Medications Acetaminophen (Acetaminophen 325 Mg Tablet) 650 mg PO Q6H PRN PRN Reason: Pain, Mild (Pain Scale 1-3) Docusate Sodium (Docusate Sodium 100 Mg Capsule) 100 mg PO DAILY PRN PRN Reason: Constipation Furosemide (Furosemide 40 Mg/4 Ml Vial) 40 mg IVPUSH BID@0900,1800 [facility]; Protocol Heparin Sodium (Porcine) (Heparin Sodium,Porcine 5,000 Unit/Ml Vial) 5,000 unit SUBCUT Q12H OSVALDO Ondansetron HCl (Ondansetron Hcl 4 Mg/2 Ml Vial) 4 mg IVPUSH Q8H PRN PRN Reason: Nausea and Vomiting Pharmacy Consult (Consult Rx Perform Med Rec) 1 each MISCELLANE ONCE PRN PRN Reason: Consult order Sodium Chloride (0.9 % Sodium Chloride Flush 3 Ml Syringe) 3 ml IVFLUSH QSHIFT [facility] Home Medications Medication Instructions Recorded Confirmed Last Taken Type clopidogrel 75 mg tablet 75 mg PO DAILY 01/06/22 Unknown History valsartan 40 mg tablet 40 mg PO DAILY 01/06/22 Unknown History Physical Exam Vital Signs and Narrative: Vital Signs: Last Vital Signs Temp 97.3 F 01/10/22 04:13 Pulse 87 01/10/22 04:13 Resp 20 01/10/22 04:13 BP 120/72 01/10/22 04:13 Pulse Ox 89 L 01/10/22 00:30 O2 Del Method 01/10/22 04:13 O2 Flow Rate 5 01/10/22 00:30 Oxygen Flow Rate 5 01/10/22 00:17 BMI result Body Mass Index 29.8 Const: General: cooperative and no acute distress Orientation/consciousness: patient oriented x3 Eyes: General: appearance normal, both eyes and all related structures Resp: Other: crackles bilaterally Effort & Inspection: normal respiratory effort Cardio: Rate: regular rate Rhythm: regular rhythm GI: Palpation (GI): Soft to palpation Auscultation: normal bowel sounds Skin: General skin exam: no rashes or lesions noted Neuro: General: patient oriented x3 Cognition (Neuro): normal cognition Extrem: Other: trace pedal edema General: Yes normal to inspection Results Labs CBC and Chem 7: 01/10/22 00:54 01/10/22 01:54 Labs: Laboratory Results - last 24 hr 01/10/22 01/10/22 01/10/22 00:37 00:54 00:54 MCV 97.5 MCH 31.1 MCHC 31.9 RDW 14.5 Plt Count 123 L MPV 14.7 H Immature Gran % (Auto) 0.4 Neut % (Auto) 83.8 H Lymph % (Auto) 12.7 L [place] % (Auto) 2.1 Eos % (Auto) 0.3 Baso % (Auto) 0.7 Lymph # (Auto) 1.2 [place] # (Auto) 0.2 Eos # (Auto) 0.0 Baso # (Auto) 0.1 Abs Immat Gran (auto) 0.04 H Absolute Neuts (auto) 7.7 Absolute Nucleated RBC 0.000 Nucleated RBC % (auto) 0.0 Smear Tech's Comments VERIFIED PT INR VBG pH VBG pCO2 VBG pO2 VBG HCO3 VBG O2 Saturation VBG Base Excess Anion Gap Estim Creat Clear Calc Estimated GFR Random Glucose Lactic Acid 4.9 H* Lactic Acid F/U @ 2Hr Calcium Total Bilirubin Direct Bilirubin AST ALT Alkaline Phosphatase B-Natriuretic Peptide Total Protein Albumin COVID-19 (SANDRA) Negative COVID-19 Clin Com See Note 01/10/22 01/10/22 01/10/22 00:54 01:03 01:54 MCV MCH MCHC RDW Plt Count MPV Immature Gran % (Auto) Neut % (Auto) Lymph % (Auto) [place] % (Auto) Eos % (Auto) Baso % (Auto) Lymph # (Auto) [place] # (Auto) Eos # (Auto) Baso # (Auto) Abs Immat Gran (auto) Absolute Neuts (auto) Absolute Nucleated RBC Nucleated RBC % (auto) Smear Tech's Comments PT 13.4 H INR 1.2 H VBG pH 7.35 VBG pCO2 24 VBG pO2 87 VBG HCO3 13 L VBG O2 Saturation 97.0 VBG Base Excess -9.8 Anion Gap Estim Creat Clear Calc Estimated GFR Random Glucose Lactic Acid Lactic Acid F/U @ 2Hr Calcium Total Bilirubin Direct Bilirubin AST ALT Alkaline Phosphatase B-Natriuretic Peptide 3509 H Total Protein Albumin COVID-19 (SANDRA) COVID-19 [address] 01/10/22 01/10/22 01:54 03:18 MCV MCH MCHC RDW Plt Count MPV Immature Gran % (Auto) Neut % (Auto) Lymph % (Auto) [place] % (Auto) Eos % (Auto) Baso % (Auto) Lymph # (Auto) [place] # (Auto) Eos # (Auto) Baso # (Auto) Abs Immat Gran (auto) Absolute Neuts (auto) Absolute Nucleated RBC Nucleated RBC % (auto) Smear Tech's Comments PT INR VBG pH VBG pCO2 VBG pO2 VBG HCO3 VBG O2 Saturation VBG Base Excess Anion Gap 20 Estim Creat Clear Calc 27.5 Estimated GFR 36 Random Glucose 186 H Lactic Acid Lactic Acid F/U @ 2Hr 3.3 H* Calcium 10.5 H D Total Bilirubin 0.6 Direct Bilirubin 0.3 AST 38 H D ALT 33 H Alkaline Phosphatase 80 B-Natriuretic Peptide Total Protein 5.8 L Albumin 3.5 COVID-19 (SANDRA) COVID-19 [employer] Com Imaging Radiologist's Impressions: Impressions Chest X-Ray 01/10/22 01:05 IMPRESSION: Small pleural effusions. Prominent interstitial markings throughout the lungs with bronchial wall thickening likely associated with fluid overload. Infectious process possible. Assessment and Plan (1) Acute respiratory failure with hypoxia: Status: Acute (2) Acute CHF (congestive heart failure): Qualifiers: Heart failure type: systolic Qualified Code(s): I50.21 - Acute systolic (congestive) heart failure Status: Acute (3) Lactic acidosis: Status: Acute (4) DOROTHY (acute kidney injury): Status: Acute (5) Elevated troponin: Status: Acute Plan 86-year-old female with past medical history of ischemic cardiomyopathy presents to the hospital with complaints of shortness of breath found to have CHF exacerbation # acute hypoxic respiratory failure - secondary to CHF exacerbation - O2 was found in the 80s, was placed on BiPAP for several hours with improvement in her symptoms, patient currently on nasal cannula 3L satting in the 94% - will start on Lasix 40 IV - continue oxygen supplement as needed # acute CHF exacerbation - systolic heart failure reduced ejection fraction - has elevated BNP, imaging evidence of volume overload on chest x-ray - will place on Lasix 40, strict I&O, low-sodium diet, and daily weight - cardiology consulted - last echo was done in November shows an ejection fraction of 35%, at this time will hold repeating # lactic acidosis - likely secondary to hypoxia - will trend # elevated troponin - likely demand in the setting of hypoxia and CHF - denies any chest pain - no EKG evidence of ST T wave changes - monitor # DOROTHY - likely prerenal the setting of CHF - on Lasix - follow BMP # history of CAD - continue Plavix, metoprolol # hypertension - stable - continue antihypertensives DVT prophylaxis: Heparin subQ Pt will require a minimum 2 night hospital stay for oxygen requirement, as well as IV Lasix Quality Stroke Does the patient have a stroke diagnosis?: No VTE Prior VTE?: No VTE Risk Level:: Medical - moderate - high VTE Device Contraindication: Treatment Not Indicated VTE Drug Contraindication: N/A - Med Ordered
[2022-01-10] MEDS: Heparin Sodium,Porcine 5,000 UNIT/ML VIAL 5000 UNIT SUBCUT (08:11)
--- NOTE | 2022-01-10 08:22 | PHA.MEDREC ---
Pharmacy Consult ? Medication Reconciliation Pharmacy has completed the medication reconciliation. Patient was a poor historian. Told me she can't remember her medications. Also claimed [facility] messes up her medications constantly. She told me she has an at home nurse paula Godoy, however when called patient was no recognized. Same for when I tried to call [facility].
[2022-01-10 08:24] LABS: ~Lactic Acid-LAB USE ONLY 0.9 mmol/L (0.5-2.0)
--- NOTE | 2022-01-10 08:24 | PHA.MEDREC ---
Pharmacy Consult ? Medication Reconciliation Pharmacy has completed the medication reconciliation. Patient was a poor historian. Patient said she uses an at home nurse with [facility]. Website only shows a toll free number, was not able to give me medical information. Saw a previous note that she was at [facility], called the facility, however, patient was not recognized. Offered to call [facility], however, patient told me they mess up her medications. I used a mixture of her recent discharge (12/06/21) and her medications she received upon discharge at [facility] (where she was transferred) to make her list.
[2022-01-10 08:58] LABS: Troponin-I High Sensitivity 1013.3 ng/L (<3.5-17.0)
--- NOTE | 2022-01-10 09:10 | PM.CNCAR ---
History of Present Illness History of Present Illness Date of Service: 01/10/22 Requesting physician: Pat Flores Chief complaint: CHF exacerbation Narrative: 86-year-old female who was admitted to [facility] in December 06 with NSTEMI and was found to have EF of 35% with LAD territory wall motion abnormalities. Her EKGs at that time showed diffuse ST depressions and precordial T-wave inversions concerning for LAD and may be left main ischemia. She was transferred to [facility] for cardiac catheterization but it appears she was not ready for cardiac catheterization and after discussion and medical management she was discharged home. She is now presenting with congestive heart failure. The patient is saying that she was sitting with her friends when she suddenly passed out. She did not recall having any symptoms before this happened to her. Reviewing history and physical she did not mention this to the medicine team. She was noticed to be hypoxic on arrival and was placed on BiPAP and was given IV diuretics. She appears significantly improved at this point. She is saying at home she has been experiencing chest heaviness and tightness. Overall she is clinically volume overloaded. Her high sensitivity troponin levels are 1000. [facility] Past Medical History Medical History Acute HFrEF (heart failure with reduced ejection fraction) Cerebrovascular disease Dyslipidemia Essential hypertension Ischemic cardiomyopathy Non-ST elevation PR (NSTEMI) Family History Family History Father No problems noted. Mother No problems noted. Surgical History Surgical History History of arthroscopy of left knee Social History Social History Household Members: None Housing: Assisted Living Facility Do you presently have visiting nurse or other home services: Yes Alcohol intake: never Patient Tobacco Use Status: Never used Tobacco e-Cigarette/Vaping Use: Never Used Second Hand Smoke Exposure: No service: No Current occupational status: retired Cognitive needs: No Hearing needs: Yes Vision needs: Yes Meds Allergies Allergy/AdvReac Type Severity Reaction Status Date / Time No Known Allergies Allergy Verified 01/10/22 00:29 Active Medications: Current Medications Acetaminophen (Acetaminophen 325 Mg Tablet) 650 mg PO Q6H PRN PRN Reason: Pain, Mild (Pain Scale 1-3) Docusate Sodium (Docusate Sodium 100 Mg Capsule) 100 mg PO DAILY PRN PRN Reason: Constipation Furosemide (Furosemide 40 Mg/4 Ml Vial) 40 mg IVPUSH BID@0900,1800 [facility]; Protocol Heparin Sodium (Porcine) (Heparin Sodium,Porcine 5,000 Unit/Ml Vial) 5,000 unit SUBCUT Q12H [facility] Last Admin: 01/10/22 08:11 Dose: 5,000 unit Ondansetron HCl (Ondansetron Hcl 4 Mg/2 Ml Vial) 4 mg IVPUSH Q8H PRN PRN Reason: Nausea and Vomiting Pharmacy Consult (Consult Rx Perform Med Rec) 1 each MISCELLANE ONCE PRN PRN Reason: Consult order Sodium Chloride (0.9 % Sodium Chloride Flush 3 Ml Syringe) 3 ml IVFLUSH QSHIFT [facility] Home Medications Medication Instructions Recorded Confirmed Last Taken Type clopidogrel 75 mg tablet 75 mg PO DAILY 01/06/22 01/10/22 Unknown History valsartan 40 mg tablet 40 mg PO DAILY 01/06/22 01/10/22 Unknown History Physical Exam Vital Signs: Vital Signs: Last Vital Signs Temp 97.3 F 01/10/22 04:13 Pulse 85 01/10/22 07:45 Resp 18 01/10/22 07:45 BP 98/50 L 01/10/22 07:45 Pulse Ox 96 01/10/22 07:45 O2 Del Method 01/10/22 07:45 O2 Flow Rate 3 01/10/22 07:45 Oxygen Flow Rate 5 01/10/22 00:17 BMI result Body Mass Index 29.8 GENERAL APPEARANCE: in no acute distress, pleasant. NECK: no carotid bruit, elevated jugular venous distention. SKIN: no suspicious lesions, warm and dry. HEART: no murmurs, regular rate and rhythm. LUNGS: Diminished on both bases. ABDOMEN: soft, nontender. EXTREMITIES: no edema. PERIPHERAL PULSES: equal. NEUROLOGIC: No gross deficits, AAO X 3 Objective Labs and Meds Result diagrams: 01/10/22 00:54 01/10/22 01:54 Lab results: Laboratory Results - last 24 hr 01/10/22 01/10/22 01/10/22 00:37 00:54 00:54 WBC 9.2 RBC 4.05 L Hgb 12.6 Hct 39.5 MCV 97.5 MCH 31.1 MCHC 31.9 RDW 14.5 Plt Count 123 L MPV 14.7 H Immature Gran % (Auto) 0.4 Neut % (Auto) 83.8 H Lymph % (Auto) 12.7 L [place] % (Auto) 2.1 Eos % (Auto) 0.3 Baso % (Auto) 0.7 Lymph # (Auto) 1.2 [place] # (Auto) 0.2 Eos # (Auto) 0.0 Baso # (Auto) 0.1 Abs Immat Gran (auto) 0.04 H Absolute Neuts (auto) 7.7 Absolute Nucleated RBC 0.000 Nucleated RBC % (auto) 0.0 Smear Tech's Comments VERIFIED PT INR VBG pH VBG pCO2 VBG pO2 VBG HCO3 VBG O2 Saturation VBG Base Excess Sodium Potassium Chloride Carbon Dioxide Anion Gap BUN Creatinine Estim Creat Clear Calc Estimated GFR Random Glucose Lactic Acid 4.9 H* Lactic Acid F/U @ 2Hr Lactic Acid F/U @ 4Hr Calcium Total Bilirubin Direct Bilirubin AST ALT Alkaline Phosphatase Troponin I High Sens B-Natriuretic Peptide Total Protein Albumin COVID-19 (SANDRA) Negative COVID-19 Clin Com See Note 01/10/22 01/10/22 01/10/22 00:54 01:03 01:54 WBC RBC Hgb Hct MCV MCH MCHC RDW Plt Count MPV Immature Gran % (Auto) Neut % (Auto) Lymph % (Auto) [place] % (Auto) Eos % (Auto) Baso % (Auto) Lymph # (Auto) [place] # (Auto) Eos # (Auto) Baso # (Auto) Abs Immat Gran (auto) Absolute Neuts (auto) Absolute Nucleated RBC Nucleated RBC % (auto) Smear Tech's Comments PT 13.4 H INR 1.2 H VBG pH 7.35 VBG pCO2 24 VBG pO2 87 VBG HCO3 13 L VBG O2 Saturation 97.0 VBG Base Excess -9.8 Sodium Potassium Chloride Carbon Dioxide Anion Gap BUN Creatinine Estim Creat Clear Calc Estimated GFR Random Glucose Lactic Acid Lactic Acid F/U @ 2Hr Lactic Acid F/U @ 4Hr Calcium Total Bilirubin Direct Bilirubin AST ALT Alkaline Phosphatase Troponin I High Sens 208.6 H* D B-Natriuretic Peptide 3509 H Total Protein Albumin COVID-19 (SANDRA) COVID-19 [employer] Com 01/10/22 01/10/22 01/10/22 01:54 03:18 07:58 WBC RBC Hgb Hct MCV MCH MCHC RDW Plt Count MPV Immature Gran % (Auto) Neut % (Auto) Lymph % (Auto) [place] % (Auto) Eos % (Auto) Baso % (Auto) Lymph # (Auto) [place] # (Auto) Eos # (Auto) Baso # (Auto) Abs Immat Gran (auto) Absolute Neuts (auto) Absolute Nucleated RBC Nucleated RBC % (auto) Smear Tech's Comments PT INR VBG pH VBG pCO2 VBG pO2 VBG HCO3 VBG O2 Saturation VBG Base Excess Sodium 140 Potassium 3.9 Chloride 106 Carbon Dioxide 18 L Anion Gap 20 BUN 28 H Creatinine 1.38 Estim Creat Clear Calc 27.5 Estimated GFR 36 Random Glucose 186 H Lactic Acid Lactic Acid F/U @ 2Hr 3.3 H* Lactic Acid F/U @ 4Hr 0.9 Calcium 10.5 H D Total Bilirubin 0.6 Direct Bilirubin 0.3 AST 38 H D ALT 33 H Alkaline Phosphatase 80 Troponin I High Sens B-Natriuretic Peptide Total Protein 5.8 L Albumin 3.5 COVID-19 (SANDRA) COVID-19 [employer] 01/10/22 07:58 WBC RBC Hgb Hct MCV MCH MCHC RDW Plt Count MPV Immature Gran % (Auto) Neut % (Auto) Lymph % (Auto) [place] % (Auto) Eos % (Auto) Baso % (Auto) Lymph # (Auto) [place] # (Auto) Eos # (Auto) Baso # (Auto) Abs Immat Gran (auto) Absolute Neuts (auto) Absolute Nucleated RBC Nucleated RBC % (auto) Smear Tech's Comments PT INR VBG pH VBG pCO2 VBG pO2 VBG HCO3 VBG O2 Saturation VBG Base Excess Sodium Potassium Chloride Carbon Dioxide Anion Gap BUN Creatinine Estim Creat Clear Calc Estimated GFR Random Glucose Lactic Acid Lactic Acid F/U @ 2Hr Lactic Acid F/U @ 4Hr Calcium Total Bilirubin Direct Bilirubin AST ALT Alkaline Phosphatase Troponin I High Sens 1013.3 H* D B-Natriuretic Peptide Total Protein Albumin COVID-19 (SANDRA) COVID-19 [employer] Imaging Radiologist's impression: Impressions Chest X-Ray 01/10/22 01:05 IMPRESSION: Small pleural effusions. Prominent interstitial markings throughout the lungs with bronchial wall thickening likely associated with fluid overload. Infectious process possible. Assessment and Plan (1) Non-ST elevation PR (NSTEMI): Status: Acute (2) Acute on chronic heart failure: Status: Acute Plan Pleasant 86-year-old female who is presenting with congestive heart failure. She is reporting an episode of syncope to me but did not reported to anyone else. It appears she came hypoxic and is possible that she does not recall the whole presentation to the emergency department. In any case she came in with congestive heart failure and was diuresed and was on BiPAP overnight. She had recent admission November 2021 when she presented with NSTEMI and new onset cardiomyopathy with concern for at least LAD stenosis if not left main. She was transferred to [facility] which appears she was not ready for cardiac catheterization and was discharged home after medical management. She is back in hospital now with heart failure episode and NSTEMI. My concerns are that she has probably multivessel disease and likely left main disease. I have discussed with her in detail about cardiac catheterization and she appears open to the idea of being transferred to [facility] for potential cardiac catheterization. I would diurese her gently and make sure that she is optimized before at transfer her. Please start her on heparin drip for now. Continue the aspirin 81 and 75 mg of Plavix as before. I would not titrate beta blockers on her. Creatinine stays stable then the valsartan can resumed otherwise or the valsartan. We will repeat echocardiography today. Thank you for allowing me to participate in the care of your patient. Please feel free to contact me if you have any questions. Procedures Date of Service Date of Service: 01/10/22
[2022-01-10] MEDS: 0.9 % Sodium Chloride Flush 3 ML SYRINGE IVFLUSH ×3 (10:40→20:01)
--- NOTE | 2022-01-10 11:00 | CA_ITS ---
Transthoracic Echocardiogram Patient (Last, First, Middle): Magali Lagos, Gender: Female Date of : 1935 Age: 86 Procedure Date: 01/10/2022 Procedure Type: Transthoracic Echocardiogram [place] [facility] [place]: 152.4 cm Weight: 48.54 kg BSA: 1.43 m2 Heart Rate: bpm BP: 110 / 55 mmHg Inclusion Paraeducator: Referring MD: Chirag Dong MD Symptoms: NSTEMI, Assess wall motion Study Quality: Adequate w contrast Conclusions: - EF 15-20%. - Cannot rule out apical thrombus. Findings Procedure Information Contrast agent, definity, is being given per protocol without apparent complications. Left Ventricle The left ventricular systolic function is severely decreased. The visually estimated ejection fraction is between 15-20%. There is evidence of regional wall motion abnormalities. There is severe global hypokinesis. LV is dilated. Cannot rule out apical thrombus. Wall Motion Rest Echo Findings The apex, apical anterior, apical inferior, and apical lateral segments are akinetic. Right Ventricle Normal right ventricular cavity size and systolic function. Mitral Valve There is moderate mitral valve regurgitation. The mitral regurgitation jet is directed anteriorly. There is no mitral valve stenosis. Tricuspid Valve Normal tricuspid valve structure. There is trace tricuspid valve regurgitation. Prior Study Comparison Significant changes compared to prior study dated: 12/09/2021. EF 15-20%, LV is dilated. Cannot rule out apical thrombus. Measurements 2D Linear Measurements IVSd: 0.85 0.6-0.9/0.6-1.0 cm LVIDd: 6.09 3.9-5.3/4.2-5.9 cm LVIDd Index: 4.26 2.4-3.2/2.2-3.1 cm/m2 LVIDs: 5.31 2.0-3.6 cm LVPWd: 0.74 0.7-1.1 cm LV Mass: 234.92 67-162/88-224 g LV Mass Index: 164.28 43-95/49-115 g/m2 2D Systolic Function EF 4C: 20.80 >55% EF 2C: 11.30 >55% EF BiP: 18.40 >55% Right Ventricle TAPSE (mm): 19.60 TVS' Quentin: 12.60 Tricuspid Valve TR Pk Quentin: 3.01 TR Pk Grad: 36.00 RA Press: 8.00 RVSP: 44.00 Updated in Other Vendor System with Status of Final Cihrag Dong MD electronically signed on 01/10/2022 2:52:03 PM with status of Final
--- NOTE | 2022-01-10 11:08 | P.EN_ITS ---
Documented by User: Pat Flores NP 01/10/22 11:13 Event Note Date of Service: 01/10/22 Event Note: 86-year-old female with past medical history of? ischemic cardiomyopathy presents to the hospital with complaints of? shortness of breath found to have CHF exacerbation Acute hypoxic respiratory failure secondary to heart failure with reduced ejection fraction Oxygen saturation in the 80s initially, placed on BiPAP with improvement within a few hours, now satting in the high 90s on 3 L nasal cannula BNP 3509 Started on IV Lasix 40 mg b.i.d. last echocardiogram in November showed EF of 35%, cardiology recommend repeating Strict intake and output, daily weights Continue oxygen supplementation NSTEMI. Secondary to heart failure with reduced ejection fraction Start IV heparin drip Cardiology following, will likely need transferred to [facility] for cardiac catheterization however patient in a KI at this time will need some correction prior to catheterization DOROTHY. Likely prerenal in the setting of acute congestive heart failure Continue diuresing Follow BMP History of coronary artery disease continue Plavix and metoprolol Hypertension Some episodes of hypotension will hold antihypertensives at this time Disposition possible transfer for cardiac catheterization once renal function improves DVT prophylaxis with heparin IV Attending Dr. Coronado DNR/DNI Continue hospitalization for treatment of NSTEMI requiring IV heparin and acute on chronic congestive heart failure requiring IV Lasix, high risk for decompensation Documented by User: Phi Coronado MD 01/11/22 08:32 Event Note Date of Service: 01/11/22
--- NOTE | 2022-01-10 11:22 | MHC.CM.PN ---
CM met with Patient at bedside and addressed IMM with her, providing her with the original and placing a copy on the chart. Patient lives alone in a [facility] apartment and she uses a cane to assist with mobility. Home/resume VNA (unsure of the name of the VNA) is the goal and CM has initiated and will follow for dc planning.Patient has received Covid vax x3 and her PCP is Dr. Jasmina Mejía. Patient's HCP is the new President [facility]/Maci Rivera.
[2022-01-10] MEDS: Heparin Sodium,Porcine/1/2NS 25,000 UNIT/250 ML IV.SOLN 6.8 UNIT IVCONT (11:42)
[2022-01-10 12:38] LABS: Troponin-I High Sensitivity 1002.5 ng/L (<3.5-17.0)
[2022-01-10 12:39] LABS: PTT Heparin Drip > 200.0 SEC (53-77.9)
--- NOTE | 2022-01-10 12:58 | PC.NURSE ---
At this time pt having an episode of confusion, cant tell me where she is, which was not her baseline from when she got up to the floor from ED- Pat Flores, ASSIGNMENT OFFICER aware at this time. Baseline- A/ox4. Neuros are intact at the moment. Vitals are stable. Another PTT ordered per policy. 12:56 PM 30 days left
[2022-01-10 13:36] LABS: Partial Thromboplastin Time 31.8 SEC (26.0-36.4)
--- NOTE | 2022-01-10 19:42 | PC.NURSE ---
Patient's new healthcare proxy is Sister Maci Rivera- [phone]
[2022-01-10] MEDS: Atorvastatin Calcium 80 MG TABLET PO (20:01)
[2022-01-10] MEDS: Calcium + Vitamin D 250 MG TABLET PO (20:01)
[2022-01-10 20:41] LABS: PTT Heparin Drip 80.1 SEC (53-77.9)
[2022-01-11] VITALS (8 sets, daily range): BP systolic 108–129; BP diastolic 51–65; PULSE 84–106; RESP 14–20; TEMP 36.5–36.9; O2SAT 92–96
--- NOTE | 2022-01-11 01:56 | ECG_ITS ---
Test Reason : afib Blood Pressure : / mmHG Vent. Rate : 131 BPM Atrial Rate : 000 BPM P-R Int : 000 ms QRS Dur : 102 ms QT Int : 264 ms P-R-T Axes : 000 -43 135 degrees QTc Int : 389 ms Atrial fibrillation with rapid ventricular response Left axis deviation Minimal voltage criteria for LVH, may be normal variant ( Shehkar product ) Septal infarct (cited on or before 10-JAN-2022) Abnormal ECG When compared with ECG of 10-JAN-2022 00:32, Atrial fibrillation is now Present Nonspecific T wave abnormality, worse in Inferior leads ST now depressed in Lateral leads Heart rate has increased Referred By: Armen Barlow Electronically Signed By:SHELBY MONTANO
--- NOTE | 2022-01-11 01:57 | PC.NURSE ---
Pt NSR at beginning of shift with HR in 80s. HR started climbing to 130s, pt assessed and sleeping. Vitals taken and stable, pt asymptomatic. Hospitalist notified, EKG ordered and metoprolol PRN ordered. EKG showing AFIB with RVR. telemetry monitor showing rhythm started converting to AFIB at 0003.
[2022-01-11 03:15] LABS: PTT Heparin Drip 80.3 SEC (53-77.9)
[2022-01-11 03:21] LABS: Hemoglobin 11.4 g/dl (12.0-16.0); Mean Corpuscular HGB Conc 34.5 g/dl (31.0-35.0); Mean Corpuscular Hemoglobin 31.8 pg (27.0-33.0); Mean Corpuscular Volume 91.9 fL (80.0-98.0); Red Blood Count 3.59 X10*6/uL (4.20-5.50); Red Cell Distribution Width 14.1 % (11.0-16.0); White Blood Count 7.1 X10*3/uL (4.8-10.8)
[2022-01-11 03:26] LABS: PLT ABN DIST 1; Platelet Count 86 X10*3/uL (160-400)
--- NOTE | 2022-01-11 04:56 | PC.NURSE ---
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 Pt redirected, still fixated on finding her clothes. Camera placed in room for patient safety. Pt quietly sitting on the edge of the bed.
[2022-01-11] MEDS: Calcium + Vitamin D 250 MG TABLET PO ×2 (08:18→21:57)
[2022-01-11] MEDS: 0.9 % Sodium Chloride Flush 3 ML SYRINGE IVFLUSH ×2 (08:24→15:26)
--- NOTE | 2022-01-11 09:03 | PM.PNCARD ---
Subjective Subjective Date of Service: 01/11/22 Physical Exam Vital Signs: Last Vital Signs Temp 98.2 F 01/11/22 07:23 Pulse 94 01/11/22 07:23 Resp 20 01/11/22 07:23 BP 118/52 L 01/11/22 07:23 Pulse Ox 95 01/11/22 07:23 O2 Del Method 01/11/22 07:23 O2 Flow Rate 3 01/10/22 07:45 Oxygen Flow Rate 5 01/10/22 00:17 BMI result Body Mass Index 20.9 Objective Labs and Meds Result diagrams: 01/11/22 02:59 01/10/22 01:54 Lab results: Laboratory Results - last 24 hr 01/10/22 01/10/22 01/10/22 11:32 11:32 13:21 WBC RBC Hgb Hct MCV MCH MCHC RDW Plt Count MPV Absolute Nucleated RBC Nucleated RBC % (auto) APTT 31.8 aPTT Heparin Protocol > 200.0 H* D Troponin I High Sens 1002.5 H* 01/10/22 01/11/22 01/11/22 20:24 02:59 02:59 WBC 7.1 RBC 3.59 L Hgb 11.4 L Hct 33.0 L MCV 91.9 D MCH 31.8 MCHC 34.5 RDW 14.1 Plt Count 86 L D MPV Not Reportable Absolute Nucleated RBC 0.000 Nucleated RBC % (auto) 0.0 APTT aPTT Heparin Protocol 80.1 H D 80.3 H Troponin I High Sens Imaging Radiologist's impression: Impressions Head CT 01/10/22 13:33 IMPRESSION: No acute intracranial abnormality on noncontrast CT head. Progress Note: A&P Time Spent With Patient Time: Total time spent is greater than 50% in coordination of care (as documented) at patient's floor/unit and/or counseling patient: Progress Note: Quality Stroke Does the patient have a stroke diagnosis?: No
[2022-01-11 09:24] LABS: PTT Heparin Drip 56.6 SEC (53-77.9)
[2022-01-11 09:28] LABS: Anion Gap 18 (12-20); Blood Urea Nitrogen 31 mg/dL (9-16); Calcium 10.1 mg/dL (8.4-10.2); Carbon Dioxide 27 mmol/L (22-29); Chloride 101 mmol/L (96-108); Creatinine Clr Calc Pharmacy 18.8; Estimated Glomerular Filt Rate 31; Glucose Random 118 mg/dL (60-115); Potassium 3.4 mmol/L (3.3-5.1); Sodium 143 mmol/L (135-145)
[2022-01-11 09:34] LABS: B Type Natriuretic Peptide 3148 pg/mL (<100)
--- NOTE | 2022-01-11 11:00 | P.PNIM_ITS ---
Subjective Subjective Date of Service: 01/11/22 Review of Systems Follow-up NSTEMI Denies chest pain, shortness breath, nausea, vomiting Plan to transfer to [facility] for cardiac catheterization once bed becomes available Physical Exam Vital Signs: Vital Signs: Last Vital Signs Temp 98.2 F 01/11/22 07:23 Pulse 94 01/11/22 07:23 Resp 20 01/11/22 07:23 BP 118/52 L 01/11/22 07:23 Pulse Ox 95 01/11/22 07:23 O2 Del Method 01/11/22 07:23 O2 Flow Rate 3 01/10/22 07:45 Oxygen Flow Rate 5 01/10/22 00:17 BMI result Body Mass Index 20.9 Appearing in no acute distress lung sounds are clear to auscultation heart regular rate rhythm, clear S1, S2 positive bowel sounds, abdomen is soft, nontender neuro patient is alert x3, no focal deficits Objective Data Active Medications Acetaminophen (Acetaminophen 325 Mg Tablet) 650 mg PO Q6H PRN PRN Reason: Pain, Mild (Pain Scale 1-3) Aspirin (Aspirin Enteric Coated 81 Mg Tablet.Dr) 81 mg PO DAILY [facility] Last Admin: 01/11/22 08:33 Dose: Not Given Documented By: ANGEL Non-Admin Reason: plt drop Atorvastatin Calcium (Atorvastatin Calcium 80 Mg Tablet) 80 mg PO BEDTIME [facility] Last Admin: 01/10/22 20:01 Dose: 80 mg Documented By: SHAYY Calcium Carbonate/Cholecalciferol (Calcium + Vitamin D 250 Mg Tablet) 250 mg PO BID [facility] Last Admin: 01/11/22 08:18 Dose: 250 mg Documented By: ANGEL Clopidogrel Bisulfate (Clopidogrel Bisulfate 75 Mg Tablet) 75 mg PO DAILY [facility] Last Admin: 01/11/22 08:33 Dose: Not Given Documented By: ANGEL Non-Admin Reason: plt drop Docusate Sodium (Docusate Sodium 100 Mg Capsule) 100 mg PO DAILY PRN PRN Reason: Constipation Furosemide (Furosemide 40 Mg/4 Ml Vial) 40 mg IVPUSH BID@0900,1800 [facility]; Protocol Last Admin: 01/11/22 08:34 Dose: Not Given Documented By: ANGEL Non-Admin Reason: Physician Held Med Heparin Sodium (Porcine) (Heparin Sodium,Porcine 5,000 Unit/Ml Vial) 1,900 unit 40 unit/kg (1900 unit) IVPUSH PROTOCOL BOLUS PRN; Protocol PRN Reason: 40 unit/kg - Heparin Protocol Heparin Sodium (Porcine) (Heparin Sodium,Porcine 5,000 Unit/Ml Vial) 3,900 unit 80 unit/kg (3900 unit) IVPUSH PROTOCOL BOLUS PRN; Protocol PRN Reason: 80 unit/kg - Heparin Protocol Heparin Sodium/Sodium Chloride (Heparin Sodium,Porcine/1/2ns) 25,000 unit in 250 mls @ 0 mls/hr IVCONT .Q0M OSVALDO; Protocol Last Titration: 01/11/22 03:40 Dose: 10 units/kg/hr, 4.86 mls/hr Documented By: SHAYY Co-signed By: APPLE Nitroglycerin (Nitroglycerin 0.4 Mg Tab.Subl) 0.4 mg SUBLINGUAL Q5MX3 PRN PRN Reason: Chest Pain Ondansetron HCl (Ondansetron Hcl 4 Mg/2 Ml Vial) 4 mg IVPUSH Q8H PRN PRN Reason: Nausea and Vomiting Pharmacy Consult (Consult Rx Perform Med Rec) 1 each MISCELLANE ONCE PRN PRN Reason: Consult order Sodium Chloride (0.9 % Sodium Chloride Flush 3 Ml Syringe) [address] [facility] Last Admin: 01/11/22 08:24 Dose: 3 ml Documented By: ANGEL Labs CBC & Chem 7: 01/11/22 02:59 01/11/22 08:39 Labs: Laboratory Results - last 24 hr 01/10/22 01/10/22 01/10/22 11:32 13:21 20:24 MCV MCH MCHC RDW Plt Count MPV Absolute Nucleated RBC Nucleated RBC % (auto) APTT 31.8 aPTT Heparin Protocol > 200.0 H* D 80.1 H D Anion Gap Estim Creat Clear Calc Estimated GFR Random Glucose Calcium B-Natriuretic Peptide 01/11/22 01/11/22 01/11/22 02:59 02:59 08:39 MCV 91.9 D MCH 31.8 MCHC 34.5 RDW 14.1 Plt Count 86 L D MPV Not Reportable Absolute Nucleated RBC 0.000 Nucleated RBC % (auto) 0.0 APTT aPTT Heparin Protocol 80.3 H Anion Gap Estim Creat Clear Calc Estimated GFR Random Glucose Calcium B-Natriuretic Peptide 3148 H 01/11/22 01/11/22 08:39 08:39 MCV MCH MCHC RDW Plt Count MPV Absolute Nucleated RBC Nucleated RBC % (auto) APTT aPTT Heparin Protocol 56.6 D Anion Gap 18 Estim Creat Clear Calc 18.8 Estimated GFR 31 Random Glucose 118 H Calcium 10.1 B-Natriuretic Peptide Microbiology Microbiology Results: Microbiology 01/10/22 00:54 Blood Culture - Preliminary Blood - Venous No growth after 24 hours. 01/10/22 00:54 Blood Culture - Preliminary Blood - Venous No growth after 24 hours. Assessment and Plan (1) Acute on chronic heart failure: Status: Acute Plan 86-year-old female with history of ischemic cardiomyopathy admitted with NSTEMI and CHF exacerbation Acute hypoxic respiratory failure secondary to heart failure with reduced ejection fraction. Resolved Oxygen saturation in the 80s initially, placed on BiPAP with improvement within a few hours, now satting in the high 90s on 3 L nasal cannula BNP 3509 originally Started on IV Lasix 40 mg b.i.d. last echocardiogram in November showed EF of 35%, cardiology recommend repeating Strict intake and output, daily weights Continue oxygen supplementation as needed NSTEMI.? Secondary to heart failure with reduced ejection fraction Continue IV heparin drip Cardiology following, will likely need transferred to [facility] for cardiac catheterization DOROTHY.? Improving Likely prerenal in the setting of acute congestive heart failure Continue diuresing Follow BMP History of coronary artery disease On aspirin and Plavix, will hold for now as platelets dropped down to 86 from 123 yesterday and she is also on IV heparin Hold metoprolol as per Cardiology Hypertension Some episodes of hypotension, hold off on valsartan and hydrochlorothiazide Disposition plan for transfer to [facility] for cardiac catheterization once bed becomes available DVT prophylaxis with heparin IV Attending Dr. Coronado DNR/DNI Continue hospitalization for treatment of NSTEMI requiring IV heparin and acute on chronic congestive heart failure requiring IV Lasix, high risk for decompensation Quality Stroke Does the patient have a stroke diagnosis?: No VTE Prior VTE?: No VTE Risk Level:: Medical - moderate - high VTE Device Contraindication: Treatment Not Indicated VTE Drug Contraindication: N/A - Med Ordered
--- NOTE | 2022-01-11 11:15 | MHC.CM.PN ---
Per ROUNDS discussion, Patient will be d/c/transferred to [facility].
--- NOTE | 2022-01-11 12:59 | P.PNCA_ITS ---
Subjective Subjective Date of Service: 01/11/22 <NANCIE Woody - Last Filed: 01/11/22 15:50> 01/11/22 <Chirag Dong MD - Last Filed: 01/11/22 16:42> Principal diagnosis: CHF, NSTEMI, syncope, PAF, DOROTHY <NANCIE Woody - Last Filed: 01/11/22 15:50> Interval history: Seen at 0930. Today she is seen sitting on edge of bed. She reports feeling well today. She did have episode of new onset Afib RVR during the night lasting 2 hr. Pt does not recall any symptoms or having EKG done at that time. Noted to be forgetful. Denies any CP, sob, dizziness, edema. States she slept well. Ate breakfast already. Tele showing SR, rate 90s this am. <NANCIE Woody - Last Filed: 01/11/22 15:50> Review of Systems Review of Systems as above <NANCIE Woody - Last Filed: 01/11/22 15:50> Physical Exam Vital Signs: Last Vital Signs Temp 98.4 F 01/11/22 11:08 Pulse 84 01/11/22 11:08 Resp 16 01/11/22 11:08 BP 108/51 L 01/11/22 11:08 Pulse Ox 94 01/11/22 11:08 O2 Del Method 01/11/22 11:08 O2 Flow Rate 3 01/10/22 07:45 Oxygen Flow Rate 5 01/10/22 00:17 BMI result Body Mass Index 20.9 <NANCIE Woody - Last Filed: 01/11/22 15:50> Const Other: pleasant, appropriate, forgetful <NANCIE Woody Last Filed: 01/11/22 15:50> General: cooperative, comfortable and no acute distress <NANCIE Woody Last Filed: 01/11/22 15:50> Neck Neck: Yes normal visual inspection and Yes no JVD <NANCIE Woody - Last Filed: 01/11/22 15:50> Resp Effort & Inspection: normal respiratory effort <NANCIE Woody Last Filed: 01/11/22 15:50> Auscultation: clear to auscultation bilaterally, no crackles, no rales, no rhonchi and no wheezes <Lara Michaels NP - Last Filed: 01/11/22 15:50> Cardio Rate: regular rate <Lara Michaels [facility] - Last Filed: 01/11/22 15:50> Rhythm: regular rhythm <Lara Brando [facility] - Last Filed: 01/11/22 15:50> Heart sounds: S1 normal heart sound present, S2 normal heart sound present, no gallops, no murmurs and no rubs <[facility] Brando [facility] - Last Filed: 01/11/22 15:50> Peripheral pulses: Peripheral pulses 2+ throughout <Lara Michaels [facility] - Last Filed: 01/11/22 15:50> GI Inspection: Yes normal to inspection <Lara Michaels [facility] - Last Filed: 01/11/22 15:50> Extrem General: Yes normal to inspection <Laranéstor Michaels [facility] - Last Filed: 01/11/22 15:50> Psych Appearance: grossly normal <Lara Brando [facility] Last Filed: 01/11/22 15:50> Mental Status: mental status grossly normal <Lara Michaels [facility] - Last Filed: 01/11/22 15:50> Speech and movement: Normal speech and movement present <Lara Brando [facility] - Last Filed: 01/11/22 15:50> Objective Labs and Meds Result diagrams: : 01/11/22 02:59 01/11/22 08:39 <Lara Michaels [facility] Last Filed: 01/11/22 15:50> Lab results: Laboratory Results - last 24 hr 01/10/22 01/10/22 01/11/22 13:21 20:24 02:59 WBC 7.1 RBC 3.59 L Hgb 11.4 L Hct 33.0 L MCV 91.9 D MCH 31.8 MCHC 34.5 RDW 14.1 Plt Count 86 L D MPV Not Reportable Absolute Nucleated RBC 0.000 Nucleated RBC % (auto) 0.0 APTT 31.8 aPTT Heparin Protocol 80.1 H D Sodium Potassium Chloride Carbon Dioxide Anion Gap BUN Creatinine Estim Creat Clear Calc Estimated GFR Random Glucose Calcium B-Natriuretic Peptide 01/11/22 01/11/22 01/11/22 02:59 08:39 08:39 WBC RBC Hgb Hct MCV MCH MCHC RDW Plt Count MPV Absolute Nucleated RBC Nucleated RBC % (auto) APTT aPTT Heparin Protocol 80.3 H Sodium 143 Potassium 3.4 Chloride 101 Carbon Dioxide 27 Anion Gap 18 BUN 31 H Creatinine 1.60 H Estim Creat Clear Calc 18.8 Estimated GFR 31 Random Glucose 118 H Calcium 10.1 B-Natriuretic Peptide 3148 H 01/11/22 08:39 WBC RBC Hgb Hct MCV MCH MCHC RDW Plt Count MPV Absolute Nucleated RBC Nucleated RBC % (auto) APTT aPTT Heparin Protocol 56.6 D Sodium Potassium Chloride Carbon Dioxide Anion Gap BUN Creatinine Estim Creat Clear Calc Estimated GFR Random Glucose Calcium B-Natriuretic Peptide <NANCIE Woody - Last Filed: 01/11/22 15:50> Imaging Radiologist's impression: Impressions Head CT 01/10/22 13:33 IMPRESSION: No acute intracranial abnormality on noncontrast CT head. <NANCIE Woody - Last Filed: 01/11/22 15:50> Progress Note: A&P Assessment and plan (1) Acute CHF (congestive heart failure): Status: Acute <NANCIE Woody - Last Filed: 01/11/22 15:50> Assessment and Plan: Admit with hypoxia, CHF. Recent NSTEMI, with known EF 35%. BNP elevated at 3509. Being treated for acute systolic HF. Limited Echo this admit shows EF down to 15-20%. Diuresing with IV Lasix. Outputs not recorded. Breathing has improved. Sat 95% on RA now. Appears Euvolemic on exam. Labs this am shows elevation in Cr to 1.6, from 1.38 yesterday. Will stop Lasix. Continue to hold her Valsartan. Plan for BMP, BNP in am. <NANCIE Woody - Last Filed: 01/11/22 15:50> (2) Non-ST elevation NH (NSTEMI): Status: Acute <Lara MichaelsNANCIE - Last Filed: 01/11/22 15:50> Assessment and Plan: NSTEMI 12/08/21. Had been Tx to [facility] for cardiac cath and patient did not want to proceed. She was managed medically and discharged. She now presents with sob, hypoxia. She reports having CP episodes and syncope at home. Also noted to be quite forgetful making the accuracy of her responses unclear. Troponins elevated again this admit, up to 1013, consistent with recurrent NSTEMI. Echo 01/10/22 showed EF 15-20%, apex, apical anterior, apical inferior, apical lateral segments are akinetic. Can not rule out apical thrombus. No reports of chest discomfort since admission. She is heparin drip for anticoagulation. She continues on aspirin, Plavix. Her beta-umesh and Arb are on hold. Need for cardiac catheterization previously reviewed with her and her healthcare proxy, Maci Rivera and they are agreeable. Creatinine elevated today so no plan for transfer at present. Will be checking creatinine again in the a.m. and if it has improved, we may arrange for transfer to [facility] at that time. Keep NPO in the a.m., except meds. <Lara Mckeon NANCIE Michaels - Last Filed: 01/11/22 15:50> (3) Elevated troponin: Status: Acute <Lara McallisterNANCIE cornell - Last Filed: 01/11/22 15:50> (4) Ischemic cardiomyopathy: Status: Acute <Lara NANCIE Martins - Last Filed: 01/11/22 15:50> (5) Paroxysmal atrial fibrillation: Status: Acute <Lara Mckeon NANCIE Michaels - Last Filed: 01/11/22 15:50> Assessment and Plan: Episode of new onset paroxysmal atrial fibrillation occurring at 00:00 to 02:00 this morning. Patient does not recall having any symptoms. An EKG done at that time confirms atrial fibrillation with RVR, rate 131. She did convert back to sinus rhythm and has maintained sinus since that time. Discussed with Dr. Dong. Will start on amiodarone loading dose to help prevent recurrent AFib, at 400 mg b.i.d. for 2 weeks then reduce to 200 mg daily. She is on heparin for anticoagulation which will be continued at this time. Eventual transition to long-term anticoagulation post cardiac catheterization. Diagnosis reviewed with patient. Ongoing telemetry monitoring. <NANCIE Woody - Last Filed: 01/11/22 15:50> (6) DOROTHY (acute kidney injury): Status: Acute <NANCIE Woody Last Filed: 01/11/22 15:50> Assessment and Plan: As above <NANCIE Woody - Last Filed: 01/11/22 15:50> Assessment and Plan: Patient seen and examined at bedside. Clinically looks euvolemic. Thank you for allowing me to participate in the care of your patient. Please feel free to contact me if you have any questions. holding the diuretics. She had atrial fibrillation overnight. We will start her on amiodarone. Will check her creatinine tomorrow. If she creatinine is improving then we will transfer to [facility] for potential diagnostic cardiac catheterization. Continue heparin drip for ACS, potential LV clot as well as atrial fibrillation. <Chirag Dong MD - Last Filed: 01/11/22 16:42> Time Spent With Patient Time: Total time spent is greater than 50% in coordination of care (as documented) at patient's floor/unit and/or counseling patient: 22 <NANCIE Woody - Last Filed: 01/11/22 15:50> Progress Note: Quality Stroke Does the patient have a stroke diagnosis?: No <NANCIE Woody - Last Filed: 01/11/22 15:50> Procedures Date of Service Date of Service: 01/11/22 <NANCIE Woody - Last Filed: 01/11/22 15:50>
[2022-01-11] MEDS: Amiodarone HCL 200 MG TABLET 400 MG PO (15:19)
[2022-01-11] MEDS: Heparin Sodium,Porcine/1/2NS 25,000 UNIT/250 ML IV.SOLN 4.86 UNIT IVCONT (15:21)
[2022-01-11 15:50] LABS: PTT Heparin Drip 34.3 SEC (53-77.9)
[2022-01-11] MEDS: Heparin Sodium,Porcine 5,000 UNIT/ML VIAL 3900 UNIT IVPUSH (16:36)
--- NOTE | 2022-01-11 19:00 | PC.NURSE ---
Report given to oncoming nurse Juan MULLINS who assumed care of pt at this time
--- NOTE | 2022-01-11 20:45 | HE.PHANOTE ---
RE HEPARIN PT PTT @ 1513 WAS 34.3. PATIENT GOT A BOLUS OF 3900, BUT INSTEAD OF INCREASING THE INFUSION BY 4U/KG/HR, THE RATE WAS INCREASED TO 14 ML/HR OR 28 U/KG/HR. WHEN DISCOVERED I CALLED EUNICEVEN RN WHO LOOKED AT PUMP. RATE IS CORRECT ON PUMP @ 14U/KG/HR BUT DOCUMENTED INCORRECTLY. RN PUT IN RIGHT RATE HAILEE
[2022-01-11] MEDS: Atorvastatin Calcium 80 MG TABLET PO (21:57)
[2022-01-11 22:55] LABS: PTT Heparin Drip 77.3 SEC (53-77.9)
[2022-01-12 04:00] VITALS: BP 122/55; PULSE 87; RESP 18; TEMP 36.7; O2SAT 97
[2022-01-12 06:00] VITALS: BMI 22.1
--- NOTE | 2022-01-12 07:00 | PC.NURSE ---
Noted PTT was not drawn at appropriate time overnight. Informed previous Rn (Juan) and he placed stat PTT draw for 0729. Pending. Heparin drip reviewed with second RN and charted on- running at correct rate/mls an hour at this time.
--- NOTE | 2022-01-12 07:42 | PC.NURSE ---
Assumed care of patient at this time
[2022-01-12 07:54] LABS: B Type Natriuretic Peptide 2577 pg/mL (<100)
[2022-01-12 08:00] VITALS: BP 113/58; PULSE 86; RESP 12; TEMP 36.4; O2SAT 97
[2022-01-12 08:07] LABS: Anion Gap 17 (12-20); Blood Urea Nitrogen 30 mg/dL (9-16); Calcium 9.1 mg/dL (8.4-10.2); Carbon Dioxide 24 mmol/L (22-29); Chloride 100 mmol/L (96-108); Creatinine Clr Calc Pharmacy 20.8; Estimated Glomerular Filt Rate 35; Glucose Random 106 mg/dL (60-115); Potassium 3.1 mmol/L (3.3-5.1); Sodium 138 mmol/L (135-145)
[2022-01-12] MEDS: Calcium + Vitamin D 250 MG TABLET PO (08:14)
[2022-01-12] MEDS: Amiodarone HCL 200 MG TABLET 400 MG PO (08:15)
[2022-01-12] MEDS: 0.9 % Sodium Chloride Flush 3 ML SYRINGE IVFLUSH (08:15)
[2022-01-12 08:26] LABS: Hematocrit 36.5 % (37.0-47.0); Hemoglobin 12.4 g/dl (12.0-16.0); Mean Corpuscular Hemoglobin 31.7 pg (27.0-33.0); Mean Corpuscular Volume 93.4 fL (80.0-98.0); Platelet Count 105 X10*3/uL (160-400); Red Blood Count 3.91 X10*6/uL (4.20-5.50); Red Cell Distribution Width 14.4 % (11.0-16.0); White Blood Count 8.3 X10*3/uL (4.8-10.8)
--- NOTE | 2022-01-12 09:36 | HO.PM.IMPN ---
Subjective Subjective Date of Service: 01/12/22 Review of Systems Follow-up NSTEMI Denies chest pain, shortness breath, nausea, vomiting Plan to transfer to [facility] for cardiac catheterization once bed becomes available Physical Exam Vital Signs: Vital Signs: Last Vital Signs Temp 97.5 F 01/12/22 08:00 Pulse 86 01/12/22 08:00 Resp 12 01/12/22 08:00 BP 113/58 L 01/12/22 08:00 Pulse Ox 97 01/12/22 08:00 O2 Del Method 01/12/22 08:00 O2 Flow Rate 3 01/10/22 07:45 Oxygen Flow Rate 5 01/10/22 00:17 BMI result Body Mass Index 22.1 Appearing in no acute distress lung sounds are clear to auscultation heart regular rate rhythm, clear S1, S2 positive bowel sounds, abdomen is soft, nontender neuro patient is alert x3, no focal deficits Objective Data Active Medications Acetaminophen (Acetaminophen 325 Mg Tablet) 650 mg PO Q6H PRN PRN Reason: Pain, Mild (Pain Scale 1-3) Amiodarone HCl (Amiodarone Hcl 200 Mg Tablet) 400 mg PO BID [facility] Last Admin: 01/12/22 08:15 Dose: 400 mg Documented By: ANGEL Aspirin (Aspirin Enteric Coated 81 Mg Tablet.) 81 mg PO DAILY [facility] Last Admin: 01/12/22 08:37 Dose: Not Given Documented By: ANGEL Non-Admin Reason: heparin gtt running Atorvastatin Calcium (Atorvastatin Calcium 80 Mg Tablet) 80 mg PO BEDTIME [facility] Last Admin: 01/11/22 21:57 Dose: 80 mg Documented By: HARJIT Calcium Carbonate/Cholecalciferol (Calcium + Vitamin D 250 Mg Tablet) 250 mg PO BID [facility] Last Admin: 01/12/22 08:14 Dose: 250 mg Documented By: ANGEL Clopidogrel Bisulfate (Clopidogrel Bisulfate 75 Mg Tablet) 75 mg PO DAILY [facility] Last Admin: 01/12/22 08:37 Dose: Not Given Documented By: ANGEL Non-Admin Reason: heparing gtt running Docusate Sodium (Docusate Sodium 100 Mg Capsule) 100 mg PO DAILY PRN PRN Reason: Constipation Furosemide (Furosemide 40 Mg/4 Ml Vial) 40 mg IVPUSH BID@0900,1800 [facility]; Protocol Last Admin: 01/11/22 08:34 Dose: Not Given Documented By: ANGEL Non-Admin Reason: Physician Held Med Heparin Sodium (Porcine) (Heparin Sodium,Porcine 5,000 Unit/Ml Vial) 1,900 unit 40 unit/kg (1900 unit) IVPUSH PROTOCOL BOLUS PRN; Protocol PRN Reason: 40 unit/kg - Heparin Protocol Heparin Sodium (Porcine) (Heparin Sodium,Porcine 5,000 Unit/Ml Vial) 3,900 unit 80 unit/kg (3900 unit) IVPUSH PROTOCOL BOLUS PRN; Protocol PRN Reason: 80 unit/kg - Heparin Protocol Last Admin: 01/11/22 16:36 Dose: 3,900 unit Documented By: ANGEL Heparin Sodium/Sodium Chloride (Heparin Sodium,Porcine/1/2ns) 25,000 unit in 250 mls @ 0 mls/hr IVCONT .Q0M [facility]; Protocol Last Titration: 01/12/22 08:46 Dose: 14 units/kg/hr, 6.8 mls/hr Documented By: ANGEL Co-signed By: MELISSA Nitroglycerin (Nitroglycerin 0.4 Mg Tab.Subl) 0.4 mg SUBLINGUAL Q5MX3 PRN PRN Reason: Chest Pain Ondansetron HCl (Ondansetron Hcl 4 Mg/2 Ml Vial) 4 mg IVPUSH Q8H PRN PRN Reason: Nausea and Vomiting Pharmacy Consult (Consult Rx Perform Med Rec) 1 each MISCELLANE ONCE PRN PRN Reason: Consult order Sodium Chloride (0.9 % Sodium Chloride Flush 3 Ml Syringe) [facility] Last Admin: 01/12/22 08:15 Dose: 3 ml Documented By: ANGEL Labs CBC & Chem 7: 01/12/22 08:05 01/12/22 06:30 Labs: Laboratory Results - last 24 hr 01/11/22 01/11/22 01/12/22 15:13 22:41 06:30 MCV MCH MCHC RDW Plt Count MPV Absolute Nucleated RBC Nucleated RBC % (auto) aPTT Heparin Protocol 34.3 L D 77.3 D Anion Gap 17 Estim Creat Clear Calc 20.8 Estimated GFR 35 Random Glucose 106 Calcium 9.1 D B-Natriuretic Peptide 01/12/22 01/12/22 01/12/22 06:30 08:05 08:05 MCV 93.4 MCH 31.7 MCHC 34.0 RDW 14.4 Plt Count 105 L MPV Not Reportable Absolute Nucleated RBC 0.000 Nucleated RBC % (auto) 0.0 aPTT Heparin Protocol 76.0 Anion Gap Estim Creat Clear Calc Estimated GFR Random Glucose Calcium B-Natriuretic Peptide 2577 H Microbiology Microbiology Results: Microbiology 01/10/22 00:54 Blood Culture - Preliminary Blood - Venous No growth after 48 hours. 01/10/22 00:54 Blood Culture - Preliminary Blood - Venous No growth after 48 hours. Assessment and Plan (1) Acute on chronic heart failure: Status: Acute Plan 86-year-old female with history of ischemic cardiomyopathy admitted with NSTEMI and CHF exacerbation Acute on chronic encephalopathy Has had intermittent confusion, healthcare proxy reports that this has been ongoing Concern for transfer to [facility] as the previous time that she went she declined the cardiac catheterization Will have the psych team evaluate her for capacity, then discuss with Cardiology with the plan will be, her healthcare proxies aware of this Acute hypoxic respiratory failure secondary to heart failure with reduced ejection fraction. Resolved Oxygen saturation in the 80s initially, placed on BiPAP with improvement within a few hours, now satting in the high 90s on 3 L nasal cannula BNP 3509 originally Started on IV Lasix 40 mg b.i.d. last echocardiogram in November showed EF of 35%, cardiology recommend repeating Strict intake and output, daily weights Continue oxygen supplementation as needed NSTEMI.? Secondary to heart failure with reduced ejection fraction Continue IV heparin drip Cardiology following, will likely need transferred to [facility] for cardiac catheterization DOROTHY.? Improving Likely prerenal in the setting of acute congestive heart failure Continue diuresing Follow BMP History of coronary artery disease On aspirin and Plavix, will hold for now as platelets dropped down to 86 from 123 yesterday and she is also on IV heparin Hold metoprolol as per Cardiology Hypertension Some episodes of hypotension, hold off on valsartan and hydrochlorothiazide Disposition plan for psychiatric evaluation for capacity DVT prophylaxis with heparin IV Attending Dr. Coronado DNR/DNI Continue hospitalization for treatment of NSTEMI requiring IV heparin and acute on chronic congestive heart failure requiring IV Lasix, high risk for decompensation Quality Stroke Does the patient have a stroke diagnosis?: No VTE Prior VTE?: No VTE Risk Level:: Medical - moderate - high VTE Device Contraindication: Treatment Not Indicated VTE Drug Contraindication: N/A - Med Ordered
[2022-01-12] MEDS: Potassium Chloride Packet 20 MEQ PACKET 40 MEQ PO (10:41)
[2022-01-12] MEDS: 0.9 % Sodium Chloride 500 ML 50 ML IVCONT (10:50)
--- NOTE | 2022-01-12 10:54 | P.PNCA_ITS ---
Subjective Subjective Date of Service: 01/12/22 Principal diagnosis: CHF, NSTEMI, syncope, PAF, DOROTHY Interval history: Seen examined at bedside. Feeling better. No chest pain or shortness of breath. Creatinine is improving. Platelet counts are stable. No bleeding. Physical Exam Vital Signs: Last Vital Signs Temp 97.5 F 01/12/22 08:00 Pulse 86 01/12/22 08:00 Resp 12 01/12/22 08:00 BP 113/58 L 01/12/22 08:00 Pulse Ox 97 01/12/22 08:00 O2 Del Method 01/12/22 08:00 O2 Flow Rate 3 01/10/22 07:45 Oxygen Flow Rate 5 01/10/22 00:17 BMI result Body Mass Index 22.1 GENERAL APPEARANCE: in no acute distress, pleasant. NECK: no carotid bruit, positive jugular venous distention. SKIN: no suspicious lesions, warm and dry. HEART: no murmurs, regular rate and rhythm. LUNGS: Diminished on both bases. ABDOMEN: soft, nontender. EXTREMITIES: no edema. PERIPHERAL PULSES: equal. NEUROLOGIC: No gross deficits, AAO X 3 Objective Labs and Meds Result diagrams: 01/12/22 08:05 01/12/22 06:30 Lab results: Laboratory Results - last 24 hr 01/11/22 01/11/22 01/12/22 15:13 22:41 06:30 WBC RBC Hgb Hct MCV MCH MCHC RDW Plt Count MPV Absolute Nucleated RBC Nucleated RBC % (auto) aPTT Heparin Protocol 34.3 L D 77.3 D Sodium 138 Potassium 3.1 L Chloride 100 Carbon Dioxide 24 Anion Gap 17 BUN 30 H Creatinine 1.44 H Estim Creat Clear Calc 20.8 Estimated GFR 35 Random Glucose 106 Calcium 9.1 D B-Natriuretic Peptide 01/12/22 01/12/22 01/12/22 06:30 08:05 08:05 WBC 8.3 RBC 3.91 L Hgb 12.4 Hct 36.5 L MCV 93.4 MCH 31.7 MCHC 34.0 RDW 14.4 Plt Count 105 L MPV Not Reportable Absolute Nucleated RBC 0.000 Nucleated RBC % (auto) 0.0 aPTT Heparin Protocol 76.0 Sodium Potassium Chloride Carbon Dioxide Anion Gap BUN Creatinine Estim Creat Clear Calc Estimated GFR Random Glucose Calcium B-Natriuretic Peptide 2577 H Progress Note: A&P Assessment and plan (1) Paroxysmal atrial fibrillation: Status: Acute (2) Acute on chronic heart failure: Status: Acute (3) DOROTHY (acute kidney injury): Status: Acute (4) Non-ST elevation [place] (NSTEMI): Status: Acute (5) Stenosis of right carotid artery: Status: Acute Plan 86-year-old female who was seen recently at [facility] for NSTEMI and was transferred to [facility] for potential cardiac catheterization. It appears she was not ready for cardiac catheterization and was medically managed and sent home. She is now presented with acute heart failure and was treated with BiPAP and diuretics. After that she developed kidney injury and diuretics were held. Creatinine is improving. Echocardiography has shown EF of 15-20%. There was apical akinesis before and on recent echocardiography and apical thrombus cannot be ruled out. She has been on heparin drip. Her platelet counts have fluctuated but the trend is not consistent with heparin-induced thr ombocytopenia. I think we should continue happen drip for now. Continue aspirin and Plavix. She had severe right internal carotid artery stenosis and has followed up with [facility] vascular and was medically treated before. I had a detailed discussion with the patient and her community nurse. After long discussion we have decided to pursue diagnostic angiography to understand her coronary anatomy. If obviously she has something high risk then we have to stop and discuss whether surgeries an option although she does not seem like a good surgical candidate. We will transfer her to [facility] today for potential cardiac catheterization tomorrow. I would avoid beta umesh and Cardizem currently. We have started amiodarone for atrial fibrillation. Postprocedure she will need transition to Eliquis and Plavix if she gets PCI. Thank you for allowing me to participate in the care of your patient. Please feel free to contact me if you have any questions. Time Spent With Patient Time: Total time spent is greater than 50% in coordination of care (as documented) at patient's floor/unit and/or counseling patient: Progress Note: Quality Stroke Does the patient have a stroke diagnosis?: No Procedures Date of Service Date of Service: 01/12/22
--- NOTE | 2022-01-12 11:07 | MHC.CM.PN ---
Per ROUNDS discussion, Patient will be dc/transferred to [facility] today.
--- NOTE | 2022-01-12 11:29 | P.CDIC_ITS ---
CDI Concurrent Query Documentation Clarification: PHYSICIAN'S DOCUMENTATION REQUEST Date of Query: 01/12/22 1132 Patient Name: Magali Lagos Admit Date: 01/10/22 Dear Doctor, A review of the medical record indicates additional documentation may be needed. Please review below and update the documentation accordingly. Clinical Indicators: Documentation includes the diagnosis of encephalopathy. Is there further specificity that correlates with the findings below: Risk Factors/Clinical Indicators/Treatments Per provider note on 01/12: Acute on chronic encephalopathy Has had intermittent confusion, healthcare proxy reports that this has been ongoing Other indicators: -diagnosis of lactic acidosis -electrolytes imbalances noted -Per provider note on 01/11: Worsening r enal function likely secondary to diuresis. Stop Lasix. Will give small amount of fluid back is patient looks dry 500ml @ 50hr -Patient being treated for acute hypoxic respiratory failure Based on the above, could you clarify in the Progress Notes which, if any of the following, is the most likely etiology of the confusion/altered mental status? * Encephalopathy - indicate type such as metabolic, toxic, septic, alcoholic, hypertensive, etc. * Other etiology (please specify) * Unable to determine Use of terms such as suspected, likely, concern for, or probable (associated with a specific diagnosis that is being evaluated, monitored, or treated as if it exists) are acceptable and can be coded in the inpatient setting, when documented at the time of discharge. Thank you, Annemarie Saenz MS, RN, CCRN Extension: [phone] Please use your independent medical judgment in providing your response. THIS QUERY IS PART OF THE PERMANENT MEDICAL RECORD Other Diagnosis: See note
[2022-01-12 12:00] VITALS: BP 104/56; PULSE 93; RESP 20; TEMP 36.8; O2SAT 97
--- NOTE | 2022-01-12 12:37 | PM.DS ---
DS: Providers Provider Date of Service: 01/12/22 Date of admission: 01/10/22 06:35 Primary care physician: Jasmina Alfaro MD Consults: 01/10/22 06:34 Consult to Cardiology Routine Consulting Provider: Adonis Reese Reason for consultation: CHF Attending physician on discharge: Phi Coronado Discharging clinician: Pat Flores DS: Diagnosis Discharge Diagnosis (1) Paroxysmal atrial fibrillation: Status: Acute (2) Acute on chronic heart failure: Status: Acute (3) DOROTHY (acute kidney injury): Status: Acute (4) Non-ST elevation [place] (NSTEMI): Status: Acute (5) Stenosis of right carotid artery: Status: Acute DS: Summary Hospital Course Hospital Course: History physical as per admitting provider 86-year-old female with past medical history of CAD, ? ischemic cardiomyopathy, heart failure with? reduced ejection fraction, hyperlipidemia, HTN, presents to the hospital with complaints of shortness of breath as well as weakness. ? Patient reports that she started developing shortness of breath and generalized weakness for the? past few days.? She reports a dry cough.? She has no lower extremity edema, she has orthopnea with no PND.? She denies any chest pain, no palpitations, no abdominal pain nausea or vomiting, no diarrhea constipation, no urinary symptoms. ? Denies any numbness or weakness and no tingling.? apparently patient was found to have an O2 in the low 80s on arrival of EMS.? Improved to 84 on 4 L of oxygen.? Patient was placed on BiPAP in the ED for several hours with improvement in her symptoms. On arrival to the ED patient hemodynamically stable? satting 88% on 5 L nasal cannula, having a heart rate of 109, respiratory rate of 38, Labs are significant for WBC count 9.2, hemoglobin of 12.6, pH of 7.35 with no CO2 retention, BUN of 28, creatinine of 1.38 with a baseline of around? 1.1,? lactic acid of 4.9, AST of 38, ALT of 33, troponin of 208, BNP of 3509, Chest x-ray shows pleural effusion and interstitial markings throughout the lungs associated with fluid overload.?currently off BiPAP, and will be admitted for further management. Acute on chronic encephalopathy Has had intermittent confusion, healthcare proxy reports that this has been ongoing At this time he will be more beneficial for patient to have the diagnostic catheterization, healthcare proxy is aware Acute hypoxic respiratory failure secondary to heart failure with reduced ejection fraction.? Resolved Oxygen saturation in the 80s initially, placed on BiPAP with improvement within a few hours, now satting in the high 90s on 3 L nasal cannula BNP 3509 originally Started on IV Lasix 40 mg b.i.d. last echocardiogram in November showed EF of 35%, with repeat echocardiogram showing EF of 15-20% and severe global hypokinesis Looking better from heart failure standpoint, Lasix has been stopped due to concern for over-diuresis, monitor for contraction alkalosis NSTEMI.? Secondary to heart failure with reduced ejection fraction Started IV heparin drip 01/10/2022 Plan to transfer to [facility] for diagnostic cardiac catheterization Avoid beta-umesh and calcium channel umesh DOROTHY.? Worse over the last 2 days Likely in the setting of diuresis Lasix stopped today Started on gentle IV fluids 50 mL an hour as patient appeared to be dry Follow BMP History of coronary artery disease Aspirin, statin and Plavix Heparin-induced thrombocytopenia Platelet dropped to 86, back up to 105 today continue heparin drip for NSTEMI Hypertension Some episodes of hypotension, hold off on valsartan and hydrochlorothiazide for now Paroxysmal atrial fibrillation Started on amiodarone Hypokalemia Secondary to diuresis Repleted Time Spent with Patient Time attestation: Total time spent providing and/or coordinating discharge services: Discharge coordination time: Greater than 30 minutes Quality: Safe Use of Opioids Does Pt have an Active Cancer Diagnosis on the Problem List?: No Quality: Stroke Does the patient have a stroke diagnosis?: No Physical Exam Vital Signs: Vital Signs: Last Vital Signs Temp 98.3 F 01/12/22 12:00 Pulse 93 01/12/22 12:00 Resp 20 01/12/22 12:00 BP 104/56 L 01/12/22 12:00 Pulse Ox 97 01/12/22 12:00 O2 Del Method 01/12/22 12:00 O2 Flow Rate 3 01/10/22 07:45 Oxygen Flow Rate 5 01/10/22 00:17 BMI result Body Mass Index 22.1 Appearing in no acute distress, thin and frail head is normocephalic atraumatic eyes pupils are PERRLA sclera is anicteric mouth throat mucous membranes are intact and moist neck is supple no lymphadenopathy, no JVD noted lung sounds scattered rhonchi heart regular rate rhythm, clear S1, S2 positive bowel sounds, abdomen is soft, nontender neuro patient is alert, intermittent confusion DS: Data Data Completed and Pending Labs on day of discharge: Laboratory Results - last 24 hr 01/11/22 01/11/22 01/12/22 15:13 22:41 06:30 WBC RBC Hgb Hct MCV MCH MCHC RDW Plt Count MPV Absolute Nucleated RBC Nucleated RBC % (auto) aPTT Heparin Protocol 34.3 L D 77.3 D Sodium 138 Potassium 3.1 L Chloride 100 Carbon Dioxide 24 Anion Gap 17 BUN 30 H Creatinine 1.44 H Estim Creat Clear Calc 20.8 Estimated GFR 35 Random Glucose 106 Calcium 9.1 D B-Natriuretic Peptide 01/12/22 01/12/22 01/12/22 06:30 08:05 08:05 WBC 8.3 RBC 3.91 L Hgb 12.4 Hct 36.5 L MCV 93.4 MCH 31.7 MCHC 34.0 RDW 14.4 Plt Count 105 L MPV Not Reportable Absolute Nucleated RBC 0.000 Nucleated RBC % (auto) 0.0 aPTT Heparin Protocol 76.0 Sodium Potassium Chloride Carbon Dioxide Anion Gap BUN Creatinine Estim Creat Clear Calc Estimated GFR Random Glucose Calcium B-Natriuretic Peptide 2577 H Preliminary micro results at discharge 01/10/22 00:54 Blood Culture - Preliminary Blood - Venous No growth after 48 hours. 01/10/22 00:54 Blood Culture - Preliminary Blood - Venous No growth after 48 hours. Discharge Plan Discharge Anticipated Discharge Date/Time: 01/12/22 12:28 Patient Disposition: er Acute Care Hospital Discharge Diagnosis: NSTEMI Ischemic cardiomyopathy DOROTHY Heparin-induced thrombocytopenia Referrals: Jasmina Juarez MD [Primary Care Provider] - 1 Week Discharge Medications: New amiodarone 200 mg Tablet 400 mg PO BID Qty: 120 0RF heparin(porcine) in 0.45% NaCl 25,000 unit/250 mL Parenteral Solution 25,000 unit continuous IV infusion .Q0M Qty: 250 0RF Continued calcium carbonate-vitamin D3 600 mg-10 mcg (400 unit) capsule 1 cap PO BID 90 Days Qty: 180 2RF atorvastatin 80 mg tablet 80 mg PO BEDTIME Qty: 1 0RF aspirin 81 mg Tablet,Delayed Release (Dr/Ec) 81 mg PO DAILY Qty: 1 0RF nitroglycerin [Nitrostat] 0.4 mg Tablet, Sublingual 0.4 mg sublingual Q5MX3 PRN (Reason: Chest Pain) Qty: 1 0RF clopidogrel 75 mg tablet 75 mg PO DAILY Held hydrochlorothiazide 25 mg tablet 25 mg PO QAM 90 Days Qty: 90 3RF Hold Instructions: Resume on 01/14/22. Low blood pressure metoprolol succinate 25 mg tablet extended release 24 hr 12.5 mg PO DAILY Qty: 1 0RF Hold Instructions: Resume on 01/16/22. NSTEMI, Low BP valsartan 40 mg tablet 40 mg PO DAILY Hold Instructions: Resume on 01/14/22. Low blood pressure Discharge Orders: Discharge Order (Routine); Ordered 01/12/22 Ordered By: Pat Flores Diet: NPO Activity on Discharge: As tolerated Stand Alone Forms: Patient Portal Discharge page Care Plan Goals: Diagnostic catheterization Health Concerns: NSTEMI Ischemic cardiomyopathy DOROTHY Heparin-induced thrombocytopenia Plan of Treatment: Plan for transfer to [facility] for diagnostic catheterization Transfer with IV heparin Assessment: See discharge summary
[2022-01-12 15:12] LABS: PTT Heparin Drip 73.9 SEC (53-77.9)
--- NOTE | 2022-01-12 15:23 | PC.NURSE ---
[facility] assuming care of patient at this time. [employer] to book ambulance for 4pm for transport. Patient agreeable to plan of care.
[2022-01-12 15:46] VITALS: BP 105/61; PULSE 82; RESP 18; TEMP 37; O2SAT 92
--- NOTE | 2022-01-12 16:27 | PC.NURSE ---
Patient witnessed leaving unit with EMS staff on stretcher for transport to [facility] at this time.
== END 2022-01-12 16:27 | disposition short-term general hospital (02) | DRG 280 ==
LOC: HO.ED 03:30 → HO.EDOVER 06:42 → HO.IMC 07:21
PROVIDERS: Hospitalist; Nurse Practitioner Family; Admitting Provider Internal Medicine; Emergency Provider Emergency Medicine; PCP Internal Medicine; Visit Provider Nurse Practitioner Acute Care
DX: I11.0 Hypertensive heart disease with heart failure (principal); I50.23 Acute on chronic systolic (congestive) heart failure; I21.4 Non-ST elevation (NSTEMI) myocardial infarction; J96.01 Acute respiratory failure with hypoxia; I21.A1 Myocardial infarction type 2; N17.9 Acute kidney failure, unspecified; G93.40 Encephalopathy, unspecified; Z66 Do not resuscitate; I25.10 Atherosclerotic heart disease of native coronary artery without angina pectoris; E78.5 Hyperlipidemia, unspecified; I65.21 Occlusion and stenosis of right carotid artery; D69.6 Thrombocytopenia, unspecified; E87.6 Hypokalemia; I48.0 Paroxysmal atrial fibrillation; I25.5 Ischemic cardiomyopathy; Z20.822 Contact with and (suspected) exposure to COVID-19; Z79.82 Long term (current) use of aspirin; Z79.02 Long term (current) use of antithrombotics/antiplatelets; Z79.899 Other long term (current) drug therapy
CPT/HCPCS: 36415; 70450; 71045; 80048; 80076; 82803; 83605; 83880; 84484; 85025; 85027; 85610; 85730; 87040; 87635; 93005; 93308; 94660; 96374; 99285; J1940; Q9957